=== PATIENT | male | born 1970 | race Caucasian/White ===

== ENCOUNTER → 2022-06-21 15:44 | Outpatient (BNVA) | payer MEDICAID, SELFPAY | PROVIDERS: PCP Nurse Practitioner Family; Visit Provider Nurse Practitioner Family | DX: R07.81 Pleurodynia (principal); W19.XXXA Unspecified fall, initial encounter; Z12.5 Encounter for screening for malignant neoplasm of prostate; F17.200 Nicotine dependence, unspecified, uncomplicated; I10 Essential (primary) hypertension | CPT/HCPCS: 71046; 80053; 80061; G0103 ==

== ENCOUNTER 2022-08-03 12:26 | Emergency (ER) | payer SELFPAY ==
--- NOTE | 2022-08-03 12:30 | W.ED.ABDPA2 ---
HPI - Abdominal Pain General: Chief Complaint: Alcohol Stated Complaint: ANXIETY/ ABDOMINAL PAIN Time Seen by Provider: 08/03/22 12:29 History of Present Illness: Mr. Raines is a 51-year-old gentleman with history of COPD, tobaccoism, hypertension, alcohol abuse presenting to the emergency department with various concerns. He reports being out of his medications for approximately 1 month. Over the past few weeks he has had increased episodes of presyncopal feelings which occur randomly. He has also had increased epigastric pain and a feeling of choking or coughing when eating or drinking. Intensity symptoms moderate. Course has worsened. No other specific changes in health, exacerbating, or alleviating factors identified. Onset (ago): week(s) Pain Consistency: constant Location: Epigastric Severity: moderate Quality: aching and burning Radiation: none Migration to: no migration Exacerbating factors: eating and movement Relieving factors: nothing Context: history of similar episodes and other Associated Symptoms: Reports dyspepsia, heartburn, nausea, poor appetite and other; Denies hematemesis and melena Review of Systems General: Reports: 10 or more systems reviewed and unremarkable except in HPI and below GI: Reports: nausea, heartburn and other; Denies: hematemesis or melena PFSH ED PFSH: Social History Smoking and tobacco status: current every day smoker cigarettes Packs smoked per day: 1.5 Years cigarettes smoked: 33 [ Other cigarette details: also smokes cigars] and cigars Years smoked cigars: 33 Alcohol intake: current Alcohol intake frequency: 3 or more drinks per day Alcohol type: other Desire information about alcohol rehabilitation?: No Counseling given: No Marital status: Single Current occupational status: unemployed Physical Exam Const: COMMON NORMALS: alert GENERAL APPEARANCE: cooperative and well developed HENMT: COMMON NORMALS: normocephalic and atraumatic HEAD & SCALP: normocephalic and atraumatic THROAT: posterior oropharynx normal OTHER: Poor dentition Eye: COMMON NORMALS: conjunctivae normal CONJUNCTIVA: Yes conjunctivae normal SCLERA: sclerae normal Neck/C-Spine: COMMON NORMALS: supple GENERAL: Yes trachea midline Resp: EFFORT & INSPECTION: Yes able to speak in complete sentences AUSCULTATION: diminished lung sounds Cardio: COMMON NORMALS: regular rate and regular rhythm RATE: regular rate RHYTHM: regular rhythm GI: COMMON NORMALS: Soft to palpation PALPATION: Yes Soft to palpation, Yes Tenderness to palpation present (GI), No Guarding due to palpation present (GI) and No Rigid due to palpation Extremity: GENERAL: Yes normal exam except as noted and No edema Neuro: COMMON NORMALS: moves all extremities SENSORIUM/ORIENTATION: Yes alert and No Orientation impaired Psych: COMMON NORMALS: mental status grossly normal and Normal thought process present THOUGHT PROCESS: Normal thought process present Course Vital Signs: Vital signs: Vital Signs Temperature 98.4 F 08/03/22 12:34 Pulse Rate 98 08/03/22 13:00 Respiratory Rate 14 08/03/22 13:00 Blood Pressure 152/91 08/03/22 13:00 Pulse Oximetry 98 08/03/22 13:00 Oxygen Delivery Me thod 08/03/22 13:00 MDM - Abdominal Pain Medical Decision Making 51-year-old gentleman presenting with generalized weakness and medical concerns. Patient has nonfocal neurologic exam and is nontoxic in appearance. EKG notable for sinus rhythm with nonspecific ST segment abnormalities, normal axis. Borderline QT interval. No STEMI Labs similar to prior, no significant hematologic abnormalities. Mild hyponatremia and hypokalemia on metabolic panel. AST is improved. Likely dehydration. Chest x-ray with no lobar consolidation or pneumothorax. CT imaging without acute intra-abdominal pathology. Discussed with patient incidental findings. Patient feels improved with IV fluids, potassium supplementation, GI cocktail. Most likely etiology of symptoms is multifactorial including gastritis and mild dehydration The results of ED evaluation were discussed with the patient including prescriptions and/or symptomatic cares (if applicable) including appropriate and responsible use, followup plan, and return precautions. The patient verbalized understanding and felt safe for discharge. Medical Records I reviewed the patient's medical records. Lab Data I reviewed the patient's lab results. 08/03/22 13:08 08/03/22 13:08 Labs/Radiology: Radiology Impressions Chest X-Ray 08/03/22 12:59 IMPRESSION: 1. Pulmonary hyperinflation. No acute process noted. Abdomen/Pelvis CT 08/03/22 13:39 IMPRESSION: 1. Hepatomegaly with diffuse fatty infiltration liver. 2. Gallbladder is normal in appearance. 3. Normal caliber abdominal aorta. 4. Normal renal parenchymal enhancement. No hydronephrosis. 5. A few sigmoid diverticuli. No diverticulitis. 6. Slightly prominent prostate measuring 4.0 CM. 7. Normal appendix. Laboratory Results WBC 8.2 10^3/uL (4.0-10.0) 08/03/22 13:08 RBC 4.56 10^6/uL (4.1-5.3) 08/03/22 13:08 Hgb 14.4 g/dL (11.7-16.6) 08/03/22 13:08 Hct 41.8 % (42.0-52.0) L 08/03/22 13:08 MCV 91.7 fl (80-94) 08/03/22 13:08 MCH 31.6 pg (28.0-34.0) 08/03/22 13:08 MCHC 34.4 g/dL (30.0-36.0) 08/03/22 13:08 RDW 12.9 % (12.1-15.1) 08/03/22 13:08 Plt Count 204 10^3/cmm (130-400) 08/03/22 13:08 MPV 10.1 fL (7.4-10.4) 08/03/22 13:08 Neut % (Auto) 83.9 % 08/03/22 13:08 Lymph % (Auto) 8.7 % 08/03/22 13:08 [place] % (Auto) 5.9 % 08/03/22 13:08 Eos % (Auto) 0.4 % 08/03/22 13:08 Baso % (Auto) 0.6 % 08/03/22 13:08 Neut # (Auto) 6.85 10^3/uL (1.8-7.7) 08/03/22 13:08 Lymph # (Auto) 0.7 10^3/uL (0.8-4.8) L 08/03/22 13:08 [place] # (Auto) 0.5 10^3/uL (0.2-0.9) 08/03/22 13:08 Eos # (Auto) 0.0 10^3/uL (0.0-0.8) 08/03/22 13:08 Baso # (Auto) 0.1 10^3/uL (0.0-0.1) 08/03/22 13:08 Nucleated RBC % (auto) 0 % 08/03/22 13:08 Nucleated RBCs # 0.0 /100WBC 08/03/22 13:08 Sodium 133 mmol/L (136-145) L 08/03/22 13:08 Potassium 3.1 mmol/L (3.5-5.1) L 08/03/22 13:08 Chloride 91 mmol/L (98-107) L 08/03/22 13:08 Carbon Dioxide 22 mmol/L (22-29) 08/03/22 13:08 Anion Gap 23.1 (5-19) H 08/03/22 13:08 BUN 14 mg/dL (6-20) 08/03/22 13:08 Creatinine 0.7 mg/dL (0.7-1.2) 08/03/22 13:08 GFR Calculation 118.4 mL/min (90-130) 08/03/22 13:08 Glucose 103 mg/dL (65-115) 08/03/22 13:08 Calculated Osmolality 277 mOsm/kg (285-295) L 08/03/22 13:08 Calcium 9.3 mg/dL (8.5-10.5) 08/03/22 13:08 Total Bilirubin 1.1 mg/dL (0.15-1.2) 08/03/22 13:08 AST 48 U/L (0-40) H 08/03/22 13:08 ALT 28 U/L (0-41) 08/03/22 13:08 Alkaline Phosphatase 111 U/L (40-130) 08/03/22 13:08 Troponin T Baseline 13 ng/L (0-15) 08/03/22 13:08 Troponin T 120 Minute 12.90 ng/L (0-15) 08/03/22 14:30 Delta Troponin T -0.1 ABS# (0-10) L 08/03/22 14:30 Total Protein 7.4 g/dL (6.6-8.7) 08/03/22 13:08 Albumin 4.2 g/dL (3.5-5.2) 08/03/22 13:08 Globulin 3.2 g/dL (1.3-4.6) 08/03/22 13:08 Lipase 18 U/L (13-60) 08/03/22 13:08 Urine Color Dark yellow (Yellow) 08/03/22 14:17 Urine Appearance Clear (CLEAR) 08/03/22 14:17 Urine pH 8 (5-7) H 08/03/22 14:17 Ur Specific [place] 1.005 (1.005-1.030) 08/03/22 14:17 Urine Protein Neg (Negative) 08/03/22 14:17 Urine Glucose (UA) Norm (Normal) 08/03/22 14:17 Urine Ketones 1+ (Negative) H 08/03/22 14:17 Urine Blood Neg (Negative) 08/03/22 14:17 Urine Nitrate Negative (Negative) 08/03/22 14:17 Urine Bilirubin Neg (Negative) 08/03/22 14:17 Prot Sulfosalicylic Acd Negative (Negative) 08/03/22 14:17 Urine Urobilinogen Norm mg/dL (Negative) 08/03/22 14:17 Ur Leukocyte Esterase Trace (Negative) H 08/03/22 14:17 Urine RBC None /hpf (0-2) 08/03/22 14:17 Urine WBC 0-4 /hpf (0-5) H 08/03/22 14:17 Ur Squamous Epith Cells None /hpf (0-5) 08/03/22 14:17 Amorphous Sediment Not Reportable 08/03/22 14:17 Urine Bacteria Trace /hpf (NONE) 08/03/22 14:17 Urine Mucus Trace /hpf 08/03/22 14:17 Discharge Plan Discharge Patient Disposition: Home Clinical Impression: Anxiety, Abdominal pain, HTN (hypertension), Alcohol abuse, Dehydration, Hypokalemia Condition: Stable Prescriptions: No Action buspirone 10 mg tablet 10 mg PO TID 30 Days Qty: 90 3RF ibuprofen 600 mg tablet 600 mg PO TID PRN (Reason: pain) 10 Days Qty: 30 0RF lisinopril 10 mg tablet 10 mg PO DAILY 30 Days Qty: 30 3RF diphenhydramine HCl [Benadryl] 25 mg capsule 25 mg PO TID PRN (Reason: allergy symptoms) 90 Days Qty: 180 1RF budesonide-formoterol [Symbicort] 160-4.5 mcg/actuation HFA aerosol inhaler 2 puff inhalation Q12H Qty: 10.2 3RF albuterol sulfate [Ventolin HFA] 90 mcg/actuation HFA aerosol inhaler 2 puff inhalation 6XD PRN (Reason: shortness of breath or wheezing) Qty: 8.5 3RF hydroxyzine HCl 25 mg tablet 25 mg PO QID 90 Days Qty: 360 0RF Discharge Orders: Discharge ED (Routine); Ordered 08/03/22 Ordered By: Allen Foote Referrals: Dulce Roe, [facility] [Primary Care Provider] - Discharge Diet: Advance as tolerated and Clear Liquid Discharge Activity: Increase activity as tolerated Patient Instructions: Gastritis (ED), Diet for Stomach Ulcers and Gastritis (ED), Abdominal Pain (ED) Activity Restrictions/Additional Instructions: Thank you for visiting the emergency department. You were seen and evaluated for abdominal pain and associated symptoms. The exact cause of your symptoms is unclear though likely related to gastritis secondary to alcohol use in the context of not taking her medications. Given that your medications were filled I recommend restarting your medications as prescribed and following up with your primary care provider. Return to the emergency department for uncontrolled symptoms or anything else that you are concerned about and feel needs emergency department evaluation. Coding Level of Care Code ED Labor Gang Supervisor for Andrae Watters
[2022-08-03 12:34] VITALS: BP 172/116; PULSE 91; RESP 20; TEMP 36.9; O2SAT 99; BMI 27.4
--- NOTE | 2022-08-03 12:59 | ECG_ITS ---
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 Measurements Intervals [place] Rate: 73 P: 77 [place]: 144 QRS: 39 QRSD: 105 T: 75 QT: 438 QTc: 485 Interpretive Statements SINUS RHYTHM WITH SINUS ARRHYTHMIA POSSIBLE LEFT VENTRICULAR HYPERTROPHY [VOLTAGE CRITERIA PLUS LAE OR QRS WIDENING] NONSPECIFIC T-WAVE ABNORMALITY PROLONGED QT INTERVAL No previous ECG available for comparison Electronically Signed On 08-03-2022 16:50:07 PROFESSOR OF EXERCISE SCIENCE by Lenny Kelly M.D. [id number]
--- NOTE | 2022-08-03 12:59 | XR_ITS ---
WS: [id number] Exam: XR chest 1V portable [id number] Date/Time of Exam: 08/03/2022 1:01 PM Reason For Exam: cp Comparison 06/21/2022. The lungs are hyperinflated and clear. Normal cardiomediastinal silhouette. Regional bony elements ar e intact. Chronic blunting of the left costophrenic angle apparently representing pleural thickening. XR/XR chest 1V portable [id number] IMPRESSION: 1. Pulmonary hyperinflation. No acute process noted.
[2022-08-03 13:00] VITALS: BP 152/91; PULSE 98; RESP 14; O2SAT 98
[2022-08-03 13:20] LABS: Basophils # 0.1 10^3/uL (0.0-0.1); Basophils % 0.6 %; Eosinophils % 0.4 %; Hematocrit 41.8 % (42.0-52.0); Hemoglobin 14.4 g/dL (11.7-16.6); Lymphocytes # 0.7 10^3/uL (0.8-4.8); Lymphocytes % 8.7 %; Mean Corpuscular HGB Conc 34.4 g/dL (30.0-36.0); Mean Corpuscular Hemoglobin 31.6 pg (28.0-34.0); Mean Corpuscular Volume 91.7 fl (80-94); Mean Platelet Volume 10.1 fL (7.4-10.4); Monocytes # 0.5 10^3/uL (0.2-0.9); Monocytes % 5.9 %; Neutrophils # 6.85 10^3/uL (1.8-7.7); Neutrophils % 83.9 %; Nucleated Red Blood Cells % 0 %; Platelet Count 204 10^3/cmm (130-400); Red Blood Count 4.56 10^6/uL (4.1-5.3); Red Cell Distribution Width 12.9 % (12.1-15.1); White Blood Count 8.2 10^3/uL (4.0-10.0)
[2022-08-03 13:38] LABS: Troponin(5th) Baseline 13 ng/L (0-15)
[2022-08-03 13:39] LABS: Alanine Aminotransferase 28 U/L (0-41); Albumin Level 4.2 g/dL (3.5-5.2); Alkaline Phosphatase 111 U/L (40-130); Anion Gap 23.1 (5-19); Aspartate Amino Transferase 48 U/L (0-40); Blood Urea Nitrogen 14 mg/dL (6-20); Calcium 9.3 mg/dL (8.5-10.5); Carbon Dioxide 22 mmol/L (22-29); Chloride 91 mmol/L (98-107); Creatinine Clr Calc Pharmacy 149.5979; Globulin 3.2 g/dL (1.3-4.6); Glomerular Filtration Rate 118.4 mL/min (90-130); Glucose 103 mg/dL (65-115); Lipase 18 U/L (13-60); Osmolality Calculated 277 mOsm/kg (285-295); Potassium 3.1 mmol/L (3.5-5.1); Sodium 133 mmol/L (136-145); Total Bilirubin 1.1 mg/dL (0.15-1.2); Total Protein 7.4 g/dL (6.6-8.7)
--- NOTE | 2022-08-03 13:39 | CT_ITS ---
WS: [id number] CT ABDOMEN PELVIS TECHNIQUE: Contrast-enhanced CT of the abdomen and pelvis with coronal and sagittal reformatted image s. CLINICAL INFORMATION: epigastric pain COMPARISON: None. DLP: 654.[address] scans at [facility] use at least one of these dose optimization techniques: automated e xposure control; mA and/or kV adjustment per patient size (includes targeted exams where dose is matc hed to clinical indication); or iterative reconstruction. FINDINGS: Mild hepatomegaly. Diffuse fatty infiltration liver. Normal portal vein and splenic vein. Normal sple en. Normal GE junction. Normal gallbladder. Lung bases are well aerated. Portal vein and splenic vein are patent. Normal spleen. Normal caliber abdominal aorta. Celiac and SMA are patent. Adrenal glands are normal. Normal renal parenchymal enhancement. No hydronephrosis. Normal pancreatic parenchymal enhancement. Prominent prostate measuring 4.0 CM. Sigmoid diverticulosi s. No evidence of acute diverticulitis. No evidence of high-grade small or large bowel obstruction. CT/CT abdomen pelvis w con* [id number] IMPRESSION: 1. Hepatomegaly with diffuse fatty infiltration liver. 2. Gallbladder is normal in appearance. 3. Normal caliber abdominal aorta. 4. Normal renal parenchymal enhancement. No hydronephrosis. 5. A few sigmoid diverticuli. No diverticulitis. 6. Slightly prominent prostate measuring 4.0 CM. 7. Normal appendix.
[2022-08-03] MEDS: iohexol 350 mg/mL 500 mL Btl (per mL) IV (13:57)
[2022-08-03] MEDS: lidocaine 2% viscous 15 ML, aluminum-mag hydrox-simethicon 30 ML, sucralfate oral liq 1 GM PO (14:50)
[2022-08-03] MEDS: nicotine 21 mg Patch 1 PATCH TRANSDERMA (14:50)
[2022-08-03] MEDS: potassium chloride ER 20 mEq Tablet 40 MEQ PO (14:51)
[2022-08-03] MEDS: sodium chloride 0.9% 1,000 ML 999 ML IV (14:51)
[2022-08-03 14:56] LABS: Add Urine Microscopic? YES; Bilirubin Urine Neg (Negative); Blood Urine Neg (Negative); Glucose Urine UA Norm (Normal); Ketones Urine 1+ (Negative); Leukocyte Esterase Urine Trace (Negative); Nitrate Urine Negative (Negative); Protein Urine Neg (Negative); Specific Gravity, Urine 1.005 (1.005-1.030); Sulfosalicylic Acid Urine Negative (Negative); Urine Appearance Clear (CLEAR); Urine Color Dark Yellow (Yellow); Urobilinogen Urine Norm (Negative); pH Urine 8 (5-7)
[2022-08-03 14:57] LABS: Bacteria Urine TRACE /hpf; Mucus Urine TRACE /hpf; WBC Urine 0-4 /hpf (0-5)
--- NOTE | 2022-08-03 14:59 | ECG_ITS ---
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 Measurements Intervals [place] Rate: 66 P: -17 ND: 101 QRS: 34 QRSD: 110 T: 53 QT: 428 QTc: 449 Interpretive Statements SINUS RHYTHM WITH SHORT ND INTERVAL POSSIBLE LEFT VENTRICULAR HYPERTROPHY [VOLTAGE CRITERIA PLUS LAE OR QRS WIDENING] NONSPECIFIC T-WAVE ABNORMALITY Compared to ECG 08/03/2022 13:14:34 Short ND interval now present Sinus arrhythmia no longer present Prolonged QT interval no longer present T-wave abnormality still present Electronically Signed On 08-03-2022 16:53:57 SUPERVISOR CUSTOMER RECORDS DIVISION by Lenny Kelly M.D. [id number]
[2022-08-03 15:02] LABS: Troponin 5 2HR Delta -0.1 ABS# (0-10)
== END 2022-08-03 16:11 | disposition home or self-care (01) ==
PROVIDERS: Emergency Provider Emergency Medicine; PCP Nurse Practitioner Family
DX: F41.9 Anxiety disorder, unspecified (principal); I10 Essential (primary) hypertension; F10.10 Alcohol abuse, uncomplicated; E86.0 Dehydration; E87.6 Hypokalemia; R10.13 Epigastric pain; K76.0 Fatty (change of) liver, not elsewhere classified; F17.210 Nicotine dependence, cigarettes, uncomplicated
CPT/HCPCS: 36415; 71045; 74177; 80053; 81001; 83690; 84484; 85025; 93005; 99285; J7030; Q9967

== ENCOUNTER 2023-07-22 17:02 | Inpatient (IN) | payer BC, SELFPAY ==
[2023-07-22] VITALS (22 sets, daily range): BP systolic 99–162; BP diastolic 58–92; PULSE 100–144; RESP 13–21; TEMP 36.9–37; O2SAT 90–99; BMI 24.3; BMI 25.0
--- NOTE | 2023-07-22 17:06 | XRR_ITS ---
PROCEDURE INFORMATION: Exam: XR Right Foot Exam date and time: 07/22/2023 5:30 PM Age: 52 years old Clinical indication: Pain; Foot; Right TECHNIQUE: Imaging protocol: Radiologic exam of the right foot. Views: 3 or more views. COMPARISON: No relevant prior studies available. FINDINGS: Bones/joints: No evidence of acute fracture or subluxation. Tarsometatarsal alignment is maintained. Achilles enthesophyte. If there is concern for Achilles tendon pathology, follow-up outpatient MRI may be helpful. There is pes cavus. Soft tissues: Questionable soft tissue ulceration of the great toe. No evidence of soft tissue air. XR/XR foot RT min 3V* [id number] IMPRESSION: 1. No evidence of acute osseous erosion, fracture or subluxation. 2. Questionable soft tissue ulceration of the great toe.
--- NOTE | 2023-07-22 17:06 | XRR_ITS ---
PROCEDURE INFORMATION: Exam: XR Left Foot Exam date and time: 07/22/2023 5:28 PM Age: 52 years old Clinical indication: Pain; Foot; Left TECHNIQUE: Imaging protocol: Radiologic exam of the left foot. Views: 3 or more views. COMPARISON: No relevant prior studies available. FINDINGS: Bones/joints: No evidence of acute fracture or subluxation. Tarsometatarsal alignment is maintained. There is pes cavus.Achilles enthesophyte. If there is concern for Achilles tendon pathology, follow-up outpatient MRI may be helpful. Soft tissues: Questionable soft tissue ulceration of the great toe. No evidence of soft tissue air. XR/XR foot LT min 3V* [id number] IMPRESSION: 1. No evidence of acute osseous erosion, fracture or subluxation. 2. Questionable soft tissue ulceration of the great toe.
--- NOTE | 2023-07-22 17:32 | W.ED.EXTPRO ---
HPI - Extremity Problem General: Chief complaint: Extremity Injury, Lower Stated complaint: feet pain Time Seen by Provider: 07/22/23 17:06 Source: patient Mode of arrival: ambulatory History of Present Illness: 52-year-old male with a history of alcoholism presents to the emergency room after having fallen off of his porch and being outside overnight a few days ago. He is complaining of pain bilaterally to his feet. He denies any other injury. Essentially he passed out intoxicated and stayed outside all night. He denies fever sweats or chills. Denies nausea or vomiting no hematemesis or coffee-ground emesis. MD Complaint: extremity pain Onset (ago): day(s) Pain Consistency: constant Location: left, right and toe (Multiple toes) Quality: aching Relieving factors: nothing Exacerbating factors: nothing Associated symptoms: Deny chest pain, fever(s) or rash Review of Systems Const: Denies: fever(s) or chills Card: Denies: chest pain Resp: Denies: dyspnea GI: Denies: abdominal pain : Denies: dysuria, urinary frequency or urinary urgency Musc: Denies: neck pain or back pain Skin/Breast: Denies: rash PFSH ED PFSH: Medical History (Updated 07/30/23 @ 06:16 by Ellis Melednez DO) History of alcoholism Excessive salivation Surgical History (Updated 07/26/23 @ 00:00 by MONSERRAT Cooley) No pertinent past surgical history Family History (Updated 07/22/23 @ 18:18 by Eulogio Price MD) Mother Diabetes Cancer Social History Smoking and tobacco/nicotine status: current every day tobacco/nicotine user cigarettes Packs smoked per day: 1.5 Years cigarettes smoked: 33 [ Other cigarette details: also smokes cigars] and cigars Years smoked cigars: 33 Alcohol intake: current Alcohol intake frequency: 3 or more drinks per day Alcohol type: other Substance/Drug Use: never Marital status: Single Current occupational status: unemployed Physical Exam Const: GENERAL APPEARANCE: cooperative ORIENTATION/CONSCIOUSNESS: Yes awake, Yes oriented to person, Yes oriented to place and Yes oriented to time HENMT: COMMON NORMALS: normocephalic, atraumatic and hearing grossly normal bilaterally HEAD & SCALP: normocephalic and atraumatic Resp: COMMON NORMALS: normal respiratory effort, No retractions, No use of accessory muscles and clear to auscultation bilaterally AUSCULTATION: clear to auscultation bilaterally Cardio: COMMON NORMALS: regular rate, regular rhythm and No murmurs present (Cardio) RATE: regular rate RHYTHM: regular rhythm GI: COMMON NORMALS: Soft to palpation and No hepatosplenomegaly present AUSCULTATION: Yes normoactive bowel sounds PALPATION: Yes Soft to palpation, No Tenderness to palpation present (GI), No Guarding due to palpation present (GI) and Yes No hepatosplenomegaly present Extremity: OTHER: Varying degrees of frostbite to his lower extremities to the toes. Several of the areas are full-thickness with a large amount of exposed subcutaneous tissue these are primarily on the sole of the foot at the first MP joint and the lateral portion of the great toes. Other toes at the tips second third and fourth toes appeared gangrenous with nonviable overlying tissue. Small amount of foul-smelling serous drainage Neuro: SENSORIUM/ORIENTATION: Yes oriented to person, Yes oriented to place and Yes oriented to time Course Vital Signs: Vital signs: Vital Signs Temperature 99.1 F 07/25/23 07:25 Pulse Rate 71 07/25/23 12:36 Respiratory Rate 16 07/25/23 12:36 Blood Pressure 144/74 07/25/23 07:25 Pulse Oximetry 97 07/25/23 12:36 Oxygen Delivery Me thod Room Air 07/25/23 07:47 MDM - Extremity (Nontraumatic) Medical Decision Making Full-thickness frostbite injury which is a couple of days old these will need debridement there is some sign that there is mild infection already. He will be admitted for IV antibiotics podiatry consult for tissue debridement and initiation of wound care. Admit to hospitalist consult podiatry. Started on CIWA protocol patient likely to have withdrawal issues Medical Records I reviewed the patient's medical records. Lab Data I reviewed the patient's lab results. 07/25/23 05:49 07/25/23 05:49 Radiology Impressions Foot X-Ray 07/22/23 17:06 IMPRESSION: 1. No evidence of acute osseous erosion, fracture or subluxation. 2. Questionable soft tissue ulceration of the great toe. Duplex Scan Lower Extremity Artery 07/22/23 17:50 IMPRESSION: 1. No evidence of hemodynamically significant stenosis or occlusion in either lower extremity. Chest/Abdomen/Pelvis CT 07/22/23 18:23 IMPRESSION: 1. No focal consolidation, pleural effusion or pneumothorax. 2. No traumatic injury to the thoracic aorta. 3. No fracture identified. IMPRESSION: 1. No solid organ injury in the abdomen or pelvis. 2. No secondary signs of bowel injury. No free air or significant free fluid in the abdomen or pelvis. 3. No fractures. Head CT 07/22/23 18:23 IMPRESSION: 1. No acute intracranial abnormality. Cervical Spine CT 07/22/23 18:29 IMPRESSION: 1. No evidence of fracture or subluxation of the cervical spine. Laboratory Results WBC 5.49 10^3/uL (3.29-11.43) 07/22/23 17:28 RBC 4.35 10^6/uL (3.85-5.65) 07/22/23 17:28 Hgb 13.60 g/dL (11.27-16.99) 07/22/23 17:28 Hct 40.4 % (37-53) 07/22/23 17:28 MCV 92.9 fl (82-101) 07/22/23 17:28 MCH 31.3 pg (27-33) 07/22/23 17:28 MCHC 33.7 g/dL (30-55) 07/22/23 17:28 RDW 14.8 % (12.1-15.1) 07/22/23 17:28 Plt Count 507 10^3/cmm (157-399) H 07/22/23 17:28 MPV 9.3 fL (7.4-10.4) 07/22/23 17:28 Neut % (Auto) 66.8 % 07/22/23 17:28 Lymph % (Auto) 27.1 % 07/22/23 17:28 [place] % (Auto) 4.6 % 07/22/23 17:28 Eos % (Auto) 0.2 % 07/22/23 17:28 Baso % (Auto) 0.9 % 07/22/23 17:28 Neut # (Auto) 3.67 10^3/uL (1.8-7.7) 07/22/23 17: Lymph # (Auto) 1.5 10^3/uL (0.8-4.8) 07/22/23 17: [place] # (Auto) 0.3 10^3/uL (0.2-0.9) 07/22/23 17: Eos # (Auto) 0.0 10^3/uL (0.0-0.8) 07/22/23: Baso # (Auto) 0.1 10^3/uL (0.0-0.1) 07/22/23: Nucleated RBC % (auto) 0 % 07/22/23: Nucleated RBCs # 0.0 /100WBC 07/22/23: ESR 90 mm/hr (0-10) H 07/22/23: PT 13.50 SECONDS (12.1-14.9) 07/22/23: INR 1.00 (0.8-1.2) 07/22/23 17: Sodium 136 mmol/L (136-145) 07/22/23: Potassium 4.8 mmol/L (3.5-5.1) 07/22/23: Chloride 92 mmol/L (98-107) L 07/22/23: Carbon Dioxide 18 mmol/L (22-29) L 07/22/23: Anion Gap 30.8 (5-19) H 07/22/23: BUN 14 mg/dL (6-20) 07/22/23: Creatinine 0.7 mg/dL (0.7-1.2) 07/22/23: GFR Calculation 118.0 mL/min (90-130) 07/22/23: Glucose 64 mg/dL (65-115) L 07/22/23: Estimat Average Glucose 97 07/22/23 17: Hemoglobin A1c 5.0 % (4.0-6.0) 07/22/23: Calculated Osmolality 281 mOsm/kg (285-295) L 07/22/23: Lactic Acid 3.9 mmol/L (0.5-2.2) H 07/22/23 17:28 Calcium 9.0 mg/dL (8.5-10.5) 07/22/23 17:28 Total Bilirubin 0.5 mg/dL (0.15-1.2) 07/22/23 17:28 AST 112 U/L (0-40) H 07/22/23 17:28 ALT 54 U/L (0-41) H 07/22/23 17:28 Alkaline Phosphatase 204 U/L (40-130) H 07/22/23 17:28 Creatine Kinase 59 U/L (39-308) 07/22/23 17:28 C-Reactive Protein 20.7 mg/L (0.0-4.9) H 07/22/23 17:28 NT-Pro-B Natriuret Pep 40 pg/mL (0-125) 07/22/23 17: Total Protein 8.5 g/dL (6.6-8.7) 07/22/23 17: Albumin 4.3 g/dL (3.5-5.2) 07/22/23 17: Globulin 4.2 g/dL (1.3-4.6) 07/22/23 17:28 Triglycerides 116 mg/dL (0-150) 07/22/23 17:28 Cholesterol 260 mg/dL (0-200) H 07/22/23 17:28 LDL Cholesterol, Calc 155 mg/dL (50-129) H 07/22/23 17: HDL Cholesterol 82 mg/dL (60-100) 07/22/23 17: LDL/HDL Ratio 1.89 RATIO (0.00-3.22) 07/22/23 17: Cholesterol/HDL Ratio 3.17 mg/dL (1.0-5.00) 07/22/23 17:28 Procalcitonin 0.06 ng/mL (0-0.5) 07/22/23 17: TSH 2.41 uIU/mL (0.27-4.20) 07/22/23 17:28 Urine Color Yellow (Yellow) 07/22/23 17:30 Urine Appearance Clear (CLEAR) 07/22/23 17:30 Urine pH 5 (5-7) 07/22/23 17:30 Ur Specific [place] 1.020 (1.005-1.030) 07/22/23 17:30 Urine Protein Neg (Negative) 07/22/23 17:30 Urine Glucose (UA) Norm (Normal) 07/22/23 17:30 Urine Ketones 2+ (Negative) H 07/22/23 17:30 Urine Blood Neg (Negative) 07/22/23 17:30 Urine Nitrate Negative (Negative) 07/22/23 17:30 Urine Bilirubin Neg (Negative) 07/22/23 17:30 Urine Urobilinogen Norm mg/dL (Negative) 07/22/23 17:30 Ur Leukocyte Esterase Negative (Negative) 07/22/23 17:30 Salicylates < 0.3 mg/dL (3-10) L 07/22/23 17:28 Urine Opiates Screen Negative ng/mL (Negative) 07/22/23 17:30 Acetaminophen < 5.0 ug/mL (10-30) L 07/22/23 17:28 Ur Barbiturates Screen Negative ng/mL (Negative) 07/22/23 17:30 Ur Phencyclidine Scrn Negative ng/mL (Negative) 07/22/23 17:30 Ur Amphetamines Screen Negative ng/mL (Negative) 07/22/23 17:30 U Benzodiazepines Scrn Negative ng/mL (Negative) 07/22/23 17:30 Urine Cocaine Screen Negative ng/mL (Negative) 07/22/23 17:30 U Marijuana (THC) Screen Negative ng/mL (Negative) 07/22/23 17:30 Volat Analys Perform On Whole blood 07/22/23 17:28 Ethyl Alcohol 301 mg/dL (0-10) H* 07/22/23 17:28 Methyl Alcohol Level None detected mg/dL (NONE DETECTED) 07/22/23 17:28 All radiology interpretation(s) finalized by discharge Discharge Plan Discharge Patient Disposition: Admitted As Inpatient Admit Provider: Eulogio Price Clinical Impression: Frostbite of toe of left foot, Current every day smoker, Alcoholism, Cellulitis Condition: Stable Discharge Diet: Cardiac Discharge Activity: Resume usual activity Coding Level of Care Code ED Director Of Tax Services for Andrae Watters
--- NOTE | 2023-07-22 17:35 | ECG_ITS ---
[facility] Test Date: 2023-07-22 Pat Name: Gerald Raines Department: Room: Gender: Male Application Development Specialist: : [id number] Requested By: Ellis Rodríguez Order Number: [id number] Sandy MD: Amadeo Root M.D. Measurements Intervals [place] Rate: 105 P: 79 AR: 148 QRS: 62 QRSD: 98 T: 78 QT: 362 QTc: 479 Interpretive Statements SINUS TACHYCARDIA Compared to ECG 08/03/2022 15:09:03 Sinus rhythm no longer present Short AR interval no longer present T-wave abnormality no longer present Electronically Signed On 07-23-2023 16:31:37 CARE ASSOCIATE by Amadeo Root M.D. [id number]
[2023-07-22 17:45] LABS: Basophils # 0.1 10^3/uL (0.0-0.1); Basophils % 0.9 %; Eosinophils % 0.2 %; Hematocrit 40.4 % (37-53); Lymphocytes # 1.5 10^3/uL (0.8-4.8); Lymphocytes % 27.1 %; Mean Corpuscular HGB Conc 33.7 g/dL (30-55); Mean Corpuscular Hemoglobin 31.3 pg (27-33); Mean Corpuscular Volume 92.9 fl (82-101); Mean Platelet Volume 9.3 fL (7.4-10.4); Monocytes # 0.3 10^3/uL (0.2-0.9); Monocytes % 4.6 %; Neutrophils # 3.67 10^3/uL (1.8-7.7); Neutrophils % 66.8 %; Nucleated Red Blood Cells % 0 %; Platelet Count 507 10^3/cmm (157-399); Red Blood Count 4.35 10^6/uL (3.85-5.65); Red Cell Distribution Width 14.8 % (12.1-15.1); White Blood Count 5.49 10^3/uL (3.29-11.43)
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
[2023-07-22 18:00] LABS: Lactic Sepsis W/Reflex 3.9 mmol/L (0.5-2.2)
[2023-07-22] MEDS: LORazepam 2 mg Tablet PO (18:00)
[2023-07-22 18:03] LABS: Alanine Aminotransferase 54 U/L (0-41); Albumin Level 4.3 g/dL (3.5-5.2); Alkaline Phosphatase 204 U/L (40-130); Anion Gap 30.8 (5-19); Aspartate Amino Transferase 112 U/L (0-40); Blood Urea Nitrogen 14 mg/dL (6-20); Carbon Dioxide 18 mmol/L (22-29); Chloride 92 mmol/L (98-107); Creatine Phosphokinase 59 U/L (39-308); Globulin 4.2 g/dL (1.3-4.6); Glucose 64 mg/dL (65-115); Osmolality Calculated 281 mOsm/kg (285-295); Potassium 4.8 mmol/L (3.5-5.1); Sodium 136 mmol/L (136-145); Total Bilirubin 0.5 mg/dL (0.15-1.2); Total Protein 8.5 g/dL (6.6-8.7)
[2023-07-22 18:14] LABS: Add Urine Microscopic? NO; Charge for UA Resulting for Rev
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
[2023-07-22 18:17] LABS: Bilirubin Urine Neg (Negative); Blood Urine Neg (Negative); Glucose Urine UA Norm (Normal); Ketones Urine 2+ (Negative); Leukocyte Esterase Urine Negative (Negative); Nitrate Urine Negative (Negative); Protein Urine Neg (Negative); Urine Appearance Clear (CLEAR); Urine Color Yellow (Yellow); Urobilinogen Urine Norm (Negative); pH Urine 5 (5-7)
--- NOTE | 2023-07-22 18:23 | P.CONIM_ITS ---
Providers/Reason For Consult 2 Consulting Physician/Specialty*: Yared Eubanks D.P.M. Reason for Consult*: Frostbite Requesting Physician: Bilateral foot wounds Primary Care Provider: Dulce Roe NP History of Present Illness History of Present Illness Gerald Raines is a 52 year old male presenting to the emergency department per recommendation of primary care for suspected frostbite left and right great toe, patient being admitted to the hospital service for alcohol withdrawal. Podiatry consulted for wound evaluation. Patient states that he accidentally locked himself out of his camper trailer overnight, states he was wearing socks and tennis shoes, states that the wounds formed after spending the night outside exposed to cold. Review of Systems 2 General: Reports: 10 or more systems reviewed and unremarkable except in HPI and below Const: Denies: fever(s) or chills Eyes: Denies: change in vision Card: Denies: chest pain or palpitations Resp: Denies: dyspnea or productive cough GI: Denies: abdominal pain, nausea or vomiting : Denies: flank pain Musc: Reports: extremity swelling, joint stiffness and deformity Skin/Breast: Reports: erythema, sores, changes in skin color, dry skin, nail changes and change in hair Neuro: Reports: numbness in extremities, sensory changes and difficulty walking Psych: Denies: suicidal ideation Endo: Denies: change in body appearance Jovanni/Lymph: Denies: tender lymph nodes Medications/Allergies Home Medications Medication Instructions Recorded Confirmed Last Taken Type albuterol sulfate 90 mcg/actuation 2 puff inhalation 6XD PRN 08/03/22 07/22/23 Unknown Rx aerosol inhaler (Ventolin HFA) shortness of breath or wheezing #8.5 grams budesonide-formoterol HFA 160 2 puff inhalation Q12H #10.2 grams 08/03/22 07/22/23 Unknown Rx mcg-4.5 mcg/actuation aerosol inhaler (Symbicort) buspirone 10 mg tablet 10 mg PO TID 30 days #90 tabs 04/11/23 07/22/23 Unknown Rx hydrochlorothiazide 25 mg tablet 25 mg PO DAILY 30 days #30 tabs 04/11/23 07/22/23 Unknown Rx lisinopril 20 mg tablet 20 mg PO DAILY 30 days #30 tabs 04/11/23 07/22/23 Unknown Rx pantoprazole 40 mg tablet,delayed 40 mg PO BID 30 days #60 tabs 04/11/23 07/22/23 Unknown Rx release clindamycin HCl 300 mg capsule 300 mg PO TID 10 days #30 caps 07/22/23 07/22/23 Unknown Rx Allergies Allergy/AdvReac Type Severity Reaction Status Date / Time No Known Allergies Allergy Verified 07/22/23 17:03 PFSH Acute 2 PFSH: Medical History (Updated 07/22/23 @ 18:54 by Yared Eubanks DPM) History of alcoholism Excessive salivation Surgical History (Updated 07/22/23 @ 18:19 by Eulogio Price MD) No pertinent past surgical history Family History (Updated 07/22/23 @ 18:18 by Eulogio Price MD) Mother Diabetes Cancer Social History Smoking and tobacco/nicotine status: current every day tobacco/nicotine user cigarettes Packs smoked per day: 1.5 Years cigarettes smoked: 33 [ Other cigarette details: also smokes cigars] and cigars Years smoked cigars: 33 Alcohol intake: current Alcohol intake frequency: 3 or more drinks per day Alcohol type: other Substance/Drug Use: never Marital status: Single Current occupational status: unemployed Vitals/I&O/Wt Last Vital Signs Temp 98.4 F 07/22/23 17:06 Pulse 118 H 07/22/23 17:30 Resp 16 07/22/23 17:06 BP 120/75 07/22/23 17:30 Pulse Ox 97 07/22/23 17:30 O2 Del Method Room Air 07/22/23 17:30 Weight last 48 hrs Weight 184 lb Physical Exam 2 Narrative: GENERAL: Patient is alert and oriented ?3 and in no acute distress. The following is a focused bilateral lower extremity exam. VASCULAR: Dorsalis pedis palpable +2 bilaterally. Posterior tibial arteries +2. Capillary refill time less than 3 seconds to the distal left second toe bilaterally. Calf is supple and nontender proximally and distally. Decreased pedal hair growth bilaterally. NEUROLOGICAL: Protective sensation intact to light touch. DERMATOLOGICAL: Mustafa grade 3 wound at the plantar medial aspect of the left hallux with erythema localized to the left great toe, wound measures 1.9 cm x 1.4 cm x 0.3 cm exposed to myofascial layer, does not probe to bone, tunnel or undermine. Grade 1 wound limited to breakdown of skin left great toe with erythema localized to the left great toe without proximal lymphangitic streaking. MUSCULOSKELETAL: Tenderness to palpation at great toe bilaterally, no crepitus with soft tissue palpation. Able to wiggle toes on command. Data 07/22/23 17:28 07/22/23 17:28 Micro: Microbiology 07/22/23 17:42 Blood Culture - Preliminary Blood SPECIMEN COLLECTED 07/22/23 17:40 Blood Culture - Preliminary Blood SPECIMEN COLLECTED A&P Assessment and plan (1) Frostbite of toe: (2) Non-pressure chronic ulcer of other part of left foot with necrosis of muscle: Plan 52-year-old male presents with frostbite, most severe is his left great toe, his Mustafa grade 3 wound exposed to myofascial layer with erythema about the left great toe. -Patient being admitted for alcohol withdrawal -Wounds were assessed in the emergency department, dressing consisting of Betadine wet-to-dry was performed -Patient has palpable pedal pulses, x-ray negative for osteomyelitis, foreign body or soft tissue edema. -Patient is afebrile, no leukocytosis, ESR 90 low suspicion for osteomyelitis, looking for other sources for elevated sed rate. -Patient to be n.p.o. at midnight in preparation for potential surgical debridement tomorrow at noon pending OR availability if not available tomorrow will plan on Saturday at noon Consult Attestations 2 Medical Necessity Statement: Frostbite bilateral foot Coding Level of Care Code Acute Code for [facility] Fwd Diagnoses Frostbite of toe T33.839A Non-pressure chronic ulcer of other part of left foot with necrosis of muscle L97.523
--- NOTE | 2023-07-22 18:23 | CTR_ITS ---
PROCEDURE INFORMATION: Exam: CT Chest Without Contrast; Diagnostic Exam date and time: 07/22/2023 7:54 PM Age: 52 years old Clinical indication: Injury or trauma; Fall; Generalized; Blunt trauma (contusions or hematomas); Patient HX: Patient states he fell off his porch several days ago. Patient acutely intoxicated. Limited history. ; Additional info: Fall off porch TECHNIQUE: Imaging protocol: Diagnostic computed tomography of the chest without contrast. Radiation optimization: All CT scans at this facility use at least one of these dose optimization techniques: automated exposure control; mA and/or kV adjustment per patient size (includes targeted exams where dose is matched to clinical indication); or iterative reconstruction. COMPARISON: CR XR chest 1V portable [id number] 08/03/2022 1:05 PM RADIATION DOSE METRICS: Total DLP (mGy-cm): 1009 FINDINGS: Lungs: Unremarkable. No consolidation. No masses. Pleural spaces: Unremarkable. No pneumothorax. No pleural effusion. Heart: Unremarkable. No cardiomegaly. No pericardial effusion. Coronary arteries: Coronary arterial atherosclerotic calcifications are present. Lymph nodes: Unremarkable. No enlarged lymph nodes. Vasculature: Unremarkable. No aortic aneurysm. Bones/joints: Unremarkable. No acute fracture. Soft tissues: Unremarkable. PROCEDURE INFORMATION: Exam: CT Abdomen And Pelvis Without Contrast Exam date and time: 07/22/2023 7:54 PM Age: 52 years old Clinical indication: Injury or trauma; Fall; Generalized; Blunt trauma (contusions or hematomas); Patient HX: Patient states he fell off his porch several days ago. Patient acutely intoxicated. Limited history. ; Additional info: Fall off porch TECHNIQUE: Imaging protocol: Computed tomography of the abdomen and pelvis without contrast. Radiation optimization: All CT scans at this facility use at least one of these dose optimization techniques: automated exposure control; mA and/or kV adjustment per patient size (includes targeted exams where dose is matched to clinical indication); or iterative reconstruction. COMPARISON: CT abdomen pelvis w con* [id number] 08/03/2022 1:55 PM RADIATION DOSE METRICS: Total DLP (mGy-cm): 1009 FINDINGS: Liver: Normal. No mass. Gallbladder and bile ducts: Normal. No calcified stones. No ductal dilation. Pancreas: Normal. No ductal dilation. Spleen: Normal. No splenomegaly. Adrenal glands: Normal. No mass. Kidneys and ureters: Normal. No hydronephrosis. Stomach and bowel: Unremarkable. No obstruction. No mucosal thickening. Appendix: No evidence of appendicitis. Intraperitoneal space: Unremarkable. No free air. No significant fluid collection. Vasculature: Unremarkable. No abdominal aortic aneurysm. Lymph nodes: Unremarkable. No enlarged lymph nodes. Urinary bladder: Unremarkable as visualized. Reproductive: Unremarkable as visualized. Bones/joints: Unremarkable. No acute fracture. Soft tissues: Unremarkable. CT/[place] [id number] IMPRESSION: 1. No focal consolidation, pleural effusion or pneumothorax. 2. No traumatic injury to the thoracic aorta. 3. No fracture identified. IMPRESSION: 1. No solid organ injury in the abdomen or pelvis. 2. No secondary signs of bowel injury. No free air or significant free fluid in the abdomen or pelvis. 3. No fractures.
--- NOTE | 2023-07-22 18:23 | CTR_ITS ---
PROCEDURE INFORMATION: Exam: CT Head Without Contrast Exam date and time: 07/22/2023 7:49 PM Age: 52 years old Clinical indication: Injury or trauma; Fall; Blunt trauma (contusions or hematomas); Patient HX: Patient states he fell off his porch several days ago. Patient acutely intoxicated. Limited history. TECHNIQUE: Imaging protocol: Computed tomography of the head without contrast. Radiation optimization: All CT scans at this facility use at least one of these dose optimization techniques: automated exposure control; mA and/or kV adjustment per patient size (includes targeted exams where dose is matched to clinical indication); or iterative reconstruction. COMPARISON: CT cervical spin wo con* [id number] 07/22/2023 7:49 PM RADIATION DOSE METRICS: Total DLP (mGy-cm): 336 FINDINGS: Brain: No evidence of intra-axial or extra-axial hemorrhage. No mass effect or midline shift. Ramires-white differentiation is maintained. Basilar cisterns are patent. Cerebral ventricles: No hydrocephalus. Paranasal sinuses: The visualized paranasal sinuses are well aerated. Mastoid air cells: The visualized mastoids and middle ears are clear. Bones/joints: The visualized calvarium and bony orbits are intact. Soft tissues: No gross soft tissue abnormality. CT/CT head wo con* [id number] IMPRESSION: 1. No acute intracranial abnormality.
[2023-07-22 18:25] LABS: Erythrocyte Sedimentation Rate 90 mm/hr (0-10)
--- NOTE | 2023-07-22 18:29 | CTR_ITS ---
PROCEDURE INFORMATION: Exam: CT Cervical Spine Without Contrast Exam date and time: 07/22/2023 7:49 PM Age: 52 years old Clinical indication: Injury or trauma; Fall; Blunt trauma; Patient HX: Patient states he fell off his porch several days ago. Patient acutely intoxicated. Limited history. TECHNIQUE: Imaging protocol: Computed tomography of the cervical spine without contrast. Radiation optimization: All CT scans at this facility use at least one of these dose optimization techniques: automated exposure control; mA and/or kV adjustment per patient size (includes targeted exams where dose is matched to clinical indication); or iterative reconstruction. COMPARISON: CT head wo con* [id number] 07/22/2023 7:49 PM RADIATION DOSE METRICS: Total DLP (mGy-cm): 236 FINDINGS: Bones/joints: No evidence of acute fracture or subluxation of the cervical spine. No evidence of aggressive osseous lesion. The craniocervical junction including the atlantoaxial and atlantooccipital articulations are intact. C2-C3: Mild uncovertebral hypertrophy without central or foraminal stenosis. C3-C4: Uncovertebral hypertrophy results in mild left-sided foraminal stenosis. No foraminal stenosis. C4-C5: Uncovertebral hypertrophy results in mild right-sided foraminal stenosis. Posterior disc protrusion results in mild central stenosis. C5-C6: Uncovertebral hypertrophy results in moderate-severe bilateral foraminal stenosis, left worse than right. Posterior disc protrusion results in moderate central stenosis. C6-C7: Mild uncovertebral hypertrophy without central or foraminal stenosis. C7-T1: Mild uncovertebral hypertrophy without central or foraminal stenosis. CT/CT cervical spin wo con* [id number] IMPRESSION: 1. No evidence of fracture or subluxation of the cervical spine.
[2023-07-22] MEDS: chlordiazePOXIDE 25 mg Capsule PO ×2 (18:35→23:52)
[2023-07-22] MEDS: sodium chloride 0.9% 1,000 ML 125 ML IV (18:37)
[2023-07-22] MEDS: piperacillin-tazobactam 3.375 GM in sodium chloride 0.9% (plus) 50 ML IV (18:42)
--- NOTE | 2023-07-22 18:49 | PC.PHAR ---
Callie Initial Dosing Patient Information Sex M M/F Last Name ALECIA AGE 52 years First Name CHRISTIANO Cool 73 inches : 1970 ABW 83.461 kg Location: ER IBW 79.9 kg If loading dose given: DW 83.461 kg Loading DOSE: 1250 mg SCr 0.7 mg/dl This Dose = 15.0 mg/kg CrCl 137.9 ml/min 1st dose Cmax: 18.8 mcg/ml Vd 62.41030 liters Time elapsed: 17.0 hrs Ke 0.119 hrs-1 Serum Conc. = 2.5 mcg/ml t1/2 6 hrs Hrs until 20 mcg/ml 0.5 hrs Hrs until 15 mcg/ml 2.9 hours Hrs until 10 mcg/ml 6.3 hours Dose Tau (Freq) Levels expected Standard 1500 12 Cmax 28.1 Targets 17.97 8.7 Cpeak 24.9 25 to 40 mg/kg hours Cmin 8.5 10 to 20
[2023-07-22] MEDS: enoxaparin 40 mg/0.4 mL Syringe SUBCUT (18:56)
[2023-07-22 18:57] LABS: NT Pro B Type Natriuretic Pept 40 pg/mL (0-125); Procalcitonin 0.06 ng/mL (0-0.5); Thyroid Stimulating Hormone 2.41 uIU/mL (0.27-4.20)
[2023-07-22] MEDS: pantoprazole 40 mg SDV IVP (19:00)
[2023-07-22] MEDS: vancomycin 1,500 MG/300 ML PIGGYBACK 200 MG IV (19:08)
[2023-07-22 19:09] LABS: Acetaminophen < 5.0 ug/mL (10-30); C Reactive Protein 20.7 mg/L (0.0-4.9); Chol HDL Ratio 3.17 mg/dL (1.0-5.00); Cholesterol 260 mg/dL (0-200); HDL Cholesterol 82 mg/dL (60-100); LDL Cholesterol Calculated 155 mg/dL (50-129); LDL HDL Ratio 1.89 RATIO (0.00-3.22); Salicylate < 0.3 mg/dL (3-10); Triglycerides 116 mg/dL (0-150)
[2023-07-22 19:11] LABS: Alcohol Level 301 mg/dL (0-10)
[2023-07-22 19:22] LABS: Reflex Lactate Order REFLEX LACTIC ORDERD
--- NOTE | 2023-07-22 19:33 | PC.NURSE ---
pt found in hallway with no underpants, pt removed left ac IV, proposal lead writer stopped pumps and attempting new access.
[2023-07-22] MEDS: morphine 4 mg/mL SDV 1 mL 2 MG IVP (20:32)
[2023-07-22] MEDS: LORazepam 2 mg/mL INJ 10 mL MDV IVP (20:36)
[2023-07-22] MEDS: folic acid 1 MG, multivitamin inj 10 ML, thiamine 100 MG in sodium chloride 0.9% 1,000 ML 252.8 MG IV (20:38)
[2023-07-22 20:59] LABS: Lactic Acid level (Lactate) 2.9 mmol/L (0.5-2.2)
[2023-07-22 21:22] LABS: Amphetamines Screen Urine Negative (Negative); Barbiturates Screen Urine Negative (Negative); Benzodiazepines Screen Urine Negative (Negative); Cocaine Screen Urine Negative (Negative); Opiate Screen Urine Negative (Negative); PCP Screen Urine Negative (Negative); THC Screen Urine Negative (Negative)
[2023-07-23] VITALS (32 sets, daily range): BP systolic 129–162; BP diastolic 58–110; PULSE 61–128; RESP 10–29; TEMP 36.1–37.8; O2SAT 92–99
[2023-07-23] MEDS: morphine 4 mg/mL SDV 1 mL 2 MG IVP ×3 (00:25→09:55)
[2023-07-23] MEDS: LORazepam 2 mg/mL INJ 10 mL MDV IVP (00:26)
[2023-07-23 00:43] LABS: Estmated Average Glucose 97
[2023-07-23] MEDS: sodium chloride 0.9% 1,000 ML 125 ML IV ×3 (02:34→20:32)
[2023-07-23] MEDS: piperacillin-tazobactam 3.375 GM in sodium chloride 0.9% (plus) 50 ML IV ×3 (02:41→18:20)
[2023-07-23 04:04] LABS: Basophils # 0.1 10^3/uL (0.0-0.1); Basophils % 1.2 %; Eosinophils # 0.1 10^3/uL (0.0-0.8); Eosinophils % 1.2 %; Hematocrit 33.5 % (37-53); Lymphocytes # 0.9 10^3/uL (0.8-4.8); Lymphocytes % 20.7 %; Mean Corpuscular HGB Conc 33.7 g/dL (30-55); Mean Corpuscular Hemoglobin 31.3 pg (27-33); Mean Corpuscular Volume 92.8 fl (82-101); Mean Platelet Volume 9.8 fL (7.4-10.4); Monocytes # 0.4 10^3/uL (0.2-0.9); Monocytes % 9.4 %; Neutrophils # 2.86 10^3/uL (1.8-7.7); Neutrophils % 67.3 %; Nucleated Red Blood Cells % 0 %; Platelet Count 333 10^3/cmm (157-399); Red Blood Count 3.61 10^6/uL (3.85-5.65); Red Cell Distribution Width 14.8 % (12.1-15.1); White Blood Count 4.25 10^3/uL (3.29-11.43)
[2023-07-23 04:26] LABS: Lactic Sepsis W/Reflex 1.2 mmol/L (0.5-2.2)
[2023-07-23 04:30] LABS: Alanine Aminotransferase 37 U/L (0-41); Albumin Level 3.6 g/dL (3.5-5.2); Alkaline Phosphatase 159 U/L (40-130); Anion Gap 18.2 (5-19); Aspartate Amino Transferase 71 U/L (0-40); Blood Urea Nitrogen 13 mg/dL (6-20); Calcium 8.3 mg/dL (8.5-10.5); Carbon Dioxide 23 mmol/L (22-29); Chloride 98 mmol/L (98-107); Globulin 3.4 g/dL (1.3-4.6); Glomerular Filtration Rate 101.1 mL/min (90-130); Glucose 120 mg/dL (65-115); Magnesium 1.5 mg/dL (1.7-2.3); Osmolality Calculated 281 mOsm/kg (285-295); Phosphorus 2.4 mg/dL (2.5-4.5); Potassium 4.2 mmol/L (3.5-5.1); Sodium 135 mmol/L (136-145); Total Bilirubin 0.5 mg/dL (0.15-1.2)
[2023-07-23] MEDS: chlordiazePOXIDE 25 mg Capsule PO ×4 (06:01→23:22)
[2023-07-23] MEDS: vancomycin 1,500 MG/300 ML PIGGYBACK 200 MG IV ×2 (06:03→18:25)
--- NOTE | 2023-07-23 06:22 | PC.NURSE ---
Patient's cigarettes placed in pyxis
--- NOTE | 2023-07-23 06:58 | P.PN_ITS ---
Subjective 2 Subjective: Patient seen bedside this morning, denies any acute events overnight. Denies any pain to the left or right foot. Patient denies any subjective nausea, vomiting, fever, chills, shortness of breath or chest pain. Vitals/I&O/Wt Last Vital Signs Temp 100.0 F H 07/23/23 03:38 Pulse 96 07/23/23 06:00 Resp 18 07/23/23 06:00 BP 153/85 07/23/23 06:00 Pulse Ox 95 07/23/23 06:00 O2 Del Method Room Air 07/23/23 06:00 07/22/23 07/22/23 07/23/23 14:59 22:59 06:59 Intake Total 1913.410 / 8935.148 6416.790 / 3136.200 Output Total 800 / 800 Balance 1913.410 / 1913.410 422.790 / 2336.200 Weight last 48 hrs Weight 192 lb 14.4 oz Weight 189 lb 8 oz Weight 184 lb Physical Exam 2 Narrative: GENERAL: Patient is alert and oriented ?3 and in no acute distress. The following is a focused bilateral lower extremity exam. VASCULAR: Dorsalis pedis palpable +2 bilaterally. Posterior tibial arteries +2. Capillary refill time less than 3 seconds to the distal left second toe bilaterally. Calf is supple and nontender proximally and distally. Decreased pedal hair growth bilaterally. NEUROLOGICAL: Protective sensation intact to light touch. DERMATOLOGICAL: Mustafa grade 3 wound at the plantar medial aspect of the left hallux with erythema localized to the left great toe, wound measures 1.9 cm x 1.4 cm x 0.3 cm exposed to myofascial layer, does not probe to bone, tunnel or undermine. Grade 1 wound limited to breakdown of skin left great toe with erythema localized to the left great toe without proximal lymphangitic streaking. MUSCULOSKELETAL: Tenderness to palpation at great toe bilaterally, no crepitus with soft tissue palpation. Able to wiggle toes on command. Data 07/23/23 03:15 07/23/23 03:15 Micro: Microbiology 07/22/23 17:42 Blood Culture - Preliminary Blood SPECIMEN COLLECTED 07/22/23 17:40 Blood Culture - Preliminary Blood SPECIMEN COLLECTED A&P Assessment and plan (1) Frostbite of toe: (2) Non-pressure chronic ulcer of other part of left foot with necrosis of muscle: Plan 52-year-old male presents with frostbite, most severe is his left great toe, his Umstafa grade 3 wound exposed to myofascial layer with erythema about the left great toe. -Patient being admitted for alcohol withdrawal -Patient has palpable pedal pulses, x-ray negative for osteomyelitis, foreign body or soft tissue edema. -Patient is afebrile, no leukocytosis, ESR 90 low suspicion for osteomyelitis, looking for other sources for elevated sed rate. -Will change wound dressing to Santyl left great toe followed by gauze -Patient scheduled for incision and debridement left and right foot tomorrow 07/24/2023 at noon per patient's request, states he did not want have surgery today. Attestations 2 Medical Necessity Statement*: Frostbite bilateral foot Coding Level of Care Code Acute Code for g Fwd Diagnoses Frostbite of toe T33.839A Non-pressure chronic ulcer of other part of left foot with necrosis of muscle L97.523
[2023-07-23] MEDS: folic acid 1 mg Tablet PO (08:11)
[2023-07-23] MEDS: multivitamin therapeutic Tablet 1 TAB PO (08:11)
[2023-07-23] MEDS: thiamine 100 mg Tablet PO (08:11)
[2023-07-23] MEDS: acetaminophen 325 mg Tablet 650 MG PO ×2 (08:16→17:15)
--- NOTE | 2023-07-23 08:55 | PC.PHAR ---
pt states he takes care of his own medications-pt states he no longer has the symbicort 160-4.5mcg ext shows last filled 09/13/22 pt states not had for over a month-pt states no longer takes hctz 25mg daily ext shows last filled 04/11/23 30d/s or buspar 10mg tid filled 04/11/23 30d/s-pt states didnt pickle maker clindamycin 300mg tid filled 07/22/23 10d/s-
[2023-07-23] MEDS: lisinopril 20 mg Tablet PO (09:20)
[2023-07-23] MEDS: diphenhydrAMINE 25 mg Capsule PO ×2 (09:20→17:12)
[2023-07-23] MEDS: magnesium sulfate premix 2 GM/50 ML PIGGYBACK IV (09:20)
[2023-07-23 12:03] LABS: Glucose Point of Care 150 mg/dL (70-110)
[2023-07-23] MEDS: collagenase oint 30 gm 1 APPLIC TOPICAL (13:51)
[2023-07-23] MEDS: HYDROcodone-acetaminophen 5-325 mg Tablet 1 TAB PO ×3 (15:12→23:21)
--- NOTE | 2023-07-23 16:10 | P.PN_ITS ---
Subjective 2 Subjective: Patient was seen this morning, is alert to person, to place, not to time, he tells me he is not going through alcohol withdrawals, but clearly having tremors, denies seeing or hearing things are not there, he tells me that he is not currently using his feet, he did not want to have a debridement today, but will be okay with it being done tomorrow I had a detailed discussion with him about alcohol withdrawal, morbidity and mortality associated, monitoring him for severe alcohol withdrawals given his alcohol level 309 however he tells me that he has never gone through alcohol withdrawal and that currently is not going through alcohol withdrawal, and he tells me that he is is not going to lose both his toes, I was adamant about his clinical condition, morbidity mortality, given the significance of his frostbite, his gangrene there is a significant likelihood that he might lose his toes, or his digits or potentially lose his foot require a below-knee amputation depending on the severity of the infection and that he must except the possibility due to the morbidity and mortality associated with severe infections, risk of sepsis, systemic infections, he seems to understand this but keeps telling me that he has not not going to lose his toes and that he is not going through alcohol withdrawals Vitals/I&O/Wt Last Vital Signs Temp 98.9 F 07/23/23 13:00 Pulse 78 07/23/23 15:00 Resp 12 07/23/23 14:00 BP 134/75 07/23/23 15:00 Pulse Ox 98 07/23/23 15:00 O2 Del Method Room Air 07/23/23 13:00 07/23/23 07/23/23 07/23/23 06:59 14:59 22:59 Intake Total 1222.790 / 3136.200 1520 / 1520 Output Total 800 / 800 450 / 450 Balance 422.790 / 2336.200 1070 / 1070 Weight last 48 hrs Weight 87.498 kg Weight 85.956 kg Weight 83.461 kg Physical Exam 2 Const: COMMON NORMALS: no acute distress and patient oriented x3 Resp: COMMON NORMALS: normal respiratory effort, No retractions, No use of accessory muscles and clear to auscultation bilaterally AUSCULTATION: clear to auscultation bilaterally Cardio: COMMON NORMALS: regular rate, regular rhythm, S1 normal heart sound present and S2 normal heart sound present RATE: regular rate RHYTHM: r egular rhythm HEART SOUNDS: S1 normal heart sound present and S2 normal heart sound present GI: COMMON NORMALS: Normal to inspection, nondistended, normoactive bowel sounds present and non-tender Extremity: COMMON NORMALS: no pedal edema Neuro: COMMON NORMALS: patient oriented x3 Psych: COMMON NORMALS: mental status grossly normal Data 07/23/23 03:15 07/23/23 03:15 Micro: Microbiology 07/22/23 17:42 Blood Culture - Preliminary Blood SPECIMEN COLLECTED 07/22/23 17:40 Blood Culture - Preliminary Blood SPECIMEN COLLECTED A&P Assessment and plan (1) Frostbite of both feet: (2) Cellulitis: Qualifiers: Site of cellulitis: extremity Site of cellulitis of extremity: lower extremity Laterality: right Qualified Code(s): L03.115 - Cellulitis of right lower limb (3) Gangrene: (4) Fall: (5) Open wound of foot, complicated: Qualifiers: Encounter type: initial encounter Laterality: unspecified laterality Qualified Code(s): S91.309A - Unspecified open wound, unspecified foot, initial encounter (6) COPD (chronic obstructive pulmonary disease): (7) Current every day smoker: (8) Alcohol withdrawal: Plan Alcohol withdrawal -Banana bag -Scheduled Librium 25 mg p.o. every 6 hours -[facility] protocol -Monitor mentation closely Fall -From his porch -Does not remember the event, does not exactly know if there is significant head trauma .-Does report diffuse musculoskeletal pain -CT head, CT neck, CT chest abdomen pelvis, no acute fractures -CPK 59 Acute encephalopathy -Possibly related to alcohol withdrawal, possible concussion from his fall -CT head no acute fracture -CT neck no acute fracture -Blood cultures, UA WNL -Thiamine, folic acid Elevated lactic acid 1.2 Cellulitis, gangrene, open wounds bilateral extremities, frostbite -Podiatry consulted for debridement -Arterial ultrasound ordered as patient is a smoker, WNL -Pro-Jimbo 0.06, CRP 20.7, sed rate 90 -Blood cultures -Vancomycin, Zosyn Sinus tachycardia, likely from alcohol withdrawal, monitor Dehydration, IV fluids Spoke to ER provider, spoke to patient spoke to nursing staff Attestations 2 Medical Necessity Statement*: Patient requires hospitalization for alcohol withdrawal, acute encephalopathy, cellulitis, gangrene, inpatient, greater than 2 midnights Diagnoses Frostbite of both feet T33.821A; T33.822A Cellulitis of right lower extremity L03.115 Site of cellulitis: extremity Site of cellulitis of extremity: lower extremity Laterality: right Gangrene I96 Fall W19.XXXA Open wound of foot with complication, unspecified laterality, initial encounter S91.309A Encounter type: initial encounter Laterality: unspecified laterality COPD (chronic obstructive pulmonary disease) J44.9 Current every day smoker F17.200 Alcohol withdrawal F10.939
[2023-07-23] MEDS: pantoprazole 40 mg SDV IVP (17:15)
--- NOTE | 2023-07-23 17:34 | PC.NURSE ---
Shift SUmmary: uneventful shift. Patient rested in bed throughout most of the day, but was occasionally up to the bedside commode and walked the unit. Started on lisinoprol and benadryl (home meds). ANtibiotics received as ordred. 1 dressing change performed to both feet. Debridement is scheduled for tommorow around 1200. NPO at midnight.
[2023-07-23] MEDS: nicotine 21 mg Patch 1 PATCH TRANSDERMA (17:39)
[2023-07-24] VITALS (84 sets, daily range): BP systolic 115–153; BP diastolic 66–116; PULSE 46–92; RESP 14–32; TEMP 36.5–37.6; O2SAT 86–100; BMI 25.4
[2023-07-24] MEDS: diphenhydrAMINE 25 mg Capsule PO ×3 (01:15→18:44)
[2023-07-24] MEDS: HYDROcodone-acetaminophen 5-325 mg Tablet 1 TAB PO ×4 (03:16→23:07)
[2023-07-24] MEDS: piperacillin-tazobactam 3.375 GM in sodium chloride 0.9% (plus) 50 ML IV ×3 (03:16→18:40)
[2023-07-24] MEDS: sodium chloride 0.9% 1,000 ML 125 ML IV (04:59)
[2023-07-24 06:20] LABS: Basophils % 0.9 %; Eosinophils # 0.1 10^3/uL (0.0-0.8); Eosinophils % 2.8 %; Hematocrit 32.5 % (37-53); Lymphocytes # 0.7 10^3/uL (0.8-4.8); Mean Corpuscular HGB Conc 32.6 g/dL (30-55); Mean Corpuscular Hemoglobin 31.1 pg (27-33); Mean Corpuscular Volume 95.3 fl (82-101); Mean Platelet Volume 9.8 fL (7.4-10.4); Monocytes # 0.1 10^3/uL (0.2-0.9); Nucleated Red Blood Cells % 0 %; Platelet Count 205 10^3/cmm (157-399); Red Blood Count 3.41 10^6/uL (3.85-5.65); Red Cell Distribution Width 14.6 % (12.1-15.1); White Blood Count 3.24 10^3/uL (3.29-11.43)
[2023-07-24] MEDS: vancomycin 1,500 MG/300 ML PIGGYBACK 200 MG IV (06:22)
[2023-07-24] MEDS: chlordiazePOXIDE 25 mg Capsule PO ×3 (06:22→23:07)
--- NOTE | 2023-07-24 06:39 | PM.PN ---
Subjective Subjective: Patient seen bedside this a.m., is n.p.o. in preparation for surgical debridement left great toe. Denies any acute events overnight. No complaints. Vitals/I&O/Wt Last Vital Signs Temp 98.4 F 07/24/23 06:10 Pulse 58 L 07/24/23 06:10 Resp 15 07/24/23 06:10 BP 128/82 07/24/23 06:10 Pulse Ox 97 07/24/23 06:10 O2 Del Method Room Air 07/23/23 20:00 07/23/23 07/23/23 07/24/23 14:59 22:59 06:59 Intake Total 1520 / 1520 1940 / 3460 1000 / 4460 Output Total 450 / 450 375 / 825 Balance 1070 / 1070 1565 / 2635 1000 / 3635 Weight last 48 hrs Weight 192 lb 9 oz Weight 192 lb 14.4 oz Weight 189 lb 8 oz Weight 184 lb Physical Exam Narrative: GENERAL: Patient is alert and oriented ?3 and in no acute distress. The following is a focused bilateral lower extremity exam. VASCULAR: Dorsalis pedis palpable +2 bilaterally. Posterior tibial arteries +2. Capillary refill time less than 3 seconds to the distal left second toe bilaterally. Calf is supple and nontender proximally and distally. Decreased pedal hair growth bilaterally. NEUROLOGICAL: Protective sensation intact to light touch. DERMATOLOGICAL: Mustafa grade 3 wound at the plantar medial aspect of the left hallux with erythema localized to the left great toe, wound measures 1.9 cm x 1.4 cm x 0.3 cm exposed to myofascial layer, does not probe to bone, tunnel or undermine. Grade 1 wound limited to breakdown of skin left great toe with erythema localized to the left great toe without proximal lymphangitic streaking. MUSCULOSKELETAL: Tenderness to palpation at great toe bilaterally, no crepitus with soft tissue palpation. Able to wiggle toes on command. Data 07/24/23 05:56 07/24/23 05:56 Micro: Microbiology 07/22/23 17:42 Blood Culture - Preliminary Blood NEGATIVE TO DATE 07/22/23 17:40 Blood Culture - Preliminary Blood NEGATIVE TO DATE A&P Assessment and plan (1) Frostbite of toe: (2) Non-pressure chronic ulcer of other part of left foot with necrosis of muscle: I reviewed at length with the patient, the risks, potential complications, benefits, alternatives, expectations, and typical outcomes associated with the surgery. The risks and potential complications were explained in detail, including but not limited to infection, wound dehiscence or soft tissue complications, bleeding and hematoma, chronic edema, neuritis or nerve damage producing numbness or chronic pain, CRPS, failure to relieve pain or worsening pain, thick / painful / unsightly scar, limited motion / stiffness, malposition, delayed union, malunion, or nonunion, fracture, reaction to implants, anesthetic complications, venous thromboembolism, and deformity recurrence. I discussed the notion of no regrets with the patient as it pertains to complications and outcomes. The patient seemed to understand the nature of the proposed care and required convalescence. They asked appropriate questions, answered to their satisfaction. They are aware no guarantees can be made as to a satisfactory outcome and they understand there may be other possible unforeseen complications or outcomes not listed here that will be treated accordingly if they arise. There were no written or implied guarantees given to the patient. They gave informed consent to proceed. Plan 52-year-old male presents with frostbite, most severe is his left great toe, his Mustafa grade 3 wound exposed to myofascial layer with erythema about the left great toe. -Patient being admitted for alcohol withdrawal -Patient has palpable pedal pulses, x-ray negative for osteomyelitis, foreign body or soft tissue edema. -Patient is afebrile, no leukocytosis, ESR 90 low suspicion for osteomyelitis, looking for other sources for elevated sed rate. -Will change wound dressing to Santyl left great toe followed by gauze Patient is n.p.o. in preparation for surgical debridement left great toe. Wishes to proceed. Attestations Medical Necessity Statement*: Frostbite, toes. Coding Level of Care Code Acute Code for [facility] Diagnoses Frostbite of toe T33.839A Non-pressure chronic ulcer of other part of left foot with necrosis of muscle L97.523
[2023-07-24 06:41] LABS: Vancomycin Trough 7.7 ug/mL (10-15)
[2023-07-24 06:43] LABS: Alanine Aminotransferase 83 U/L (0-41); Albumin Level 3.5 g/dL (3.5-5.2); Alkaline Phosphatase 186 U/L (40-130); Aspartate Amino Transferase 334 U/L (0-40); Blood Urea Nitrogen 11 mg/dL (6-20); Calcium 8.5 mg/dL (8.5-10.5); Carbon Dioxide 23 mmol/L (22-29); Chloride 105 mmol/L (98-107); Globulin 2.7 g/dL (1.3-4.6); Glomerular Filtration Rate 140.9 mL/min (90-130); Glucose 111 mg/dL (65-115); Magnesium 1.5 mg/dL (1.7-2.3); Osmolality Calculated 286 mOsm/kg (285-295); Phosphorus 2.5 mg/dL (2.5-4.5); Sodium 138 mmol/L (136-145); Total Protein 6.2 g/dL (6.6-8.7)
[2023-07-24] MEDS: thiamine 100 mg Tablet PO (08:44)
[2023-07-24] MEDS: multivitamin therapeutic Tablet 1 TAB PO (08:44)
[2023-07-24] MEDS: folic acid 1 mg Tablet PO (08:44)
[2023-07-24] MEDS: lisinopril 20 mg Tablet PO (08:44)
[2023-07-24] MEDS: magnesium sulfate premix 2 GM/50 ML PIGGYBACK IV (08:56)
[2023-07-24] MEDS: collagenase oint 30 gm 1 APPLIC TOPICAL (11:23)
--- NOTE | 2023-07-24 11:58 | W.PM.OPSUD ---
Surgery/Procedure H&P Update DATE OF PROCEDURE: July 24, 2023 DATE H&P PERFORMED: 07/22/23 H&P UPDATE INFORMATION: I have reviewed H&P completed within last 30 days, I have examined patient prior to procedure, No changes to prior documentation and H&P is in [facility] EMR on date indicated PREOP DIAGNOSIS: Frostbite left great toe PLANNED PROCEDURE: Operation Date: 07/24/23 12:00 Proposed Procedures p Incision and debridement left foot(Left) - Yraed Eubanks DPM
[2023-07-24] MEDS: lidocaine 2% INJ 20 mL INJECTION (12:13)
--- NOTE | 2023-07-24 12:33 | PC.NURSE ---
1225 Surgery crew brought patient back to ICU 2 via bed and drowsy but awake. New dressing to left foot, dry and intact. VSS.
--- NOTE | 2023-07-24 12:43 | P.BOP_ITS ---
Date of Procedure: 07/24/23 Surgeon: Yared Eubanks DPM Cnc Mill Operator(s): Koko Procedure(s) performed: Incision and debridement left foot Findings of the procedure(s): Devitalized tissue down to to and including as well as below myofascial layer. Estimated blood loss: 5 mL Specimen(s) removed: None Post-operative diagnosis: Gangrene left great toe no complications with anesthesia or surgery
--- NOTE | 2023-07-24 12:44 | PM.OP ---
Operative Report Date of procedure: July 24, 2023 Pre-op diagnosis: Gangrene left great toe Post-op diagnosis: Gangrene left great toe Post-op findings: devitalized tissue down to and including myofascial layer Procedure done: Incision and debridement down to and including subfascial layer left great toe. CPT code 49260 Implants: None Specimens removed/disposition: None Pathology: None Surgeon: Yared Eubanks DPM Paint Prep Technician: Koko Estimated blood loss: 5 No tourniquet IV fluids: 0 Urine output: 0 Complications: None Brief History: Frostbite left great toe after having accidentally locked himself out of his camper overnight, was inebriated. I reviewed at length with the patient, the risks, potential complications, benefits, alternatives, expectations, and typical outcomes associated with the surgery. The risks and potential complications were explained in detail, including but not limited to infection, wound dehiscence or soft tissue complications, bleeding and hematoma, chronic edema, neuritis or nerve damage producing numbness or chronic pain, CRPS, failure to relieve pain or worsening pain, thick / painful / unsightly scar, limited motion / stiffness, malposition, delayed union, malunion, or nonunion, fracture, reaction to implants, anesthetic complications, venous thromboembolism, and deformity recurrence. I discussed the notion of no regrets with the patient as it pertains to complications and outcomes. The patient seemed to understand the nature of the proposed care and required convalescence. They asked appropriate questions, answered to their satisfaction. They are aware no guarantees can be made as to a satisfactory outcome and they understand there may be other possible unforeseen complications or outcomes not listed here that will be treated accordingly if they arise. There were no written or implied guarantees given to the patient. They gave informed consent to proceed. Procedure: Under mild sedation patient was brought to the operating room and remained on the gurney in supine position. A timeout was performed. Anesthesia was then administered by the anesthesia service. Local anesthesia was injected by myself consisting of 20 cc of 1% lidocaine plain and a left reverse Ledesma block fashion. Well-padded pneumatic tourniquet applied to the left ankle of note this was never inflated during the procedure. Left lower extremity was scrubbed, prepped and draped utilizing normal aseptic technique. Attention was directed to the left great toe where a devitalized and gangrenous appearing wound with foul-smelling odor was appreciated. Wound was sharply incised down to myofascial layer with debridement excisionally in nature with pickups and a #15 blade of all devitalized tissue. Postdebridement wound measurement 4 cm x 2.7 cm x 0.3 cm, wound was irrigated with copious amounts of sterile skin solution. No further devitalized tissue was appreciated. Wound did not extend down to bone. Dressing consisting of Adaptic, sterile 4 x 4's, Anthony, Kerlix and Mono wrap was applied to the left foot. Patient tolerated the procedure and anesthesia well and was transferred to the PACU with vital signs stable and vascular status intact. Following a period of postoperative monitoring he will be transferred back to the ICU to continue oral antibiotics. Will continue with wound care while hospitalized with close follow-up in podiatry clinic with Dr. Eubanks next week. Planning on 14-day oral antibiotic course at discharge.
--- NOTE | 2023-07-24 12:51 | P.PN_ITS ---
Subjective 2 Subjective: patient was seen this morning, he denies fever, no chills, no nausea, no vomiting, does complain of pain in bilateral lower extermities Vitals/I&O/Wt Last Vital Signs Temp 97.7 F 07/24/23 12:30 Pulse 62 07/24/23 12:30 Resp 16 07/24/23 12:30 BP 122/84 07/24/23 12:30 Pulse Ox 95 07/24/23 12:30 O2 Del Method Room Air 07/24/23 10:26 07/23/23 07/24/23 07/24/23 22:59 06:59 14:59 Intake Total 1940 / 3460 1000 / 4460 516.667 / 516.667 Output Total 375 / 825 200 / 200 Balance 1565 / 2635 1000 / 3635 316.667 / 316.667 Weight last 48 hrs Weight 87.345 kg Weight 87.498 kg Weight 85.956 kg Weight 83.461 kg Physical Exam 2 Const: COMMON NORMALS: no acute distress and patient oriented x3 Resp: COMMON NORMALS: normal respiratory effort, No retractions, No use of accessory muscles and clear to auscultation bilaterally AUSCULTATION: clear to auscultation bilaterally Cardio: COMMON NORMALS: regular rate, regular rhythm, S1 normal heart sound present and S2 normal heart sound present RATE: regular rate RHYTHM: r egular rhythm HEART SOUNDS: S1 normal heart sound present and S2 normal heart sound present GI: COMMON NORMALS: Normal to inspection, nondistended, normoactive bowel sounds present and non-tender Extremity: COMMON NORMALS: no pedal edema NARRATIVE EXTREMITY EXAM: bilateral lower extremities wrapped Neuro: COMMON NORMALS: patient oriented x3 Psych: COMMON NORMALS: mental status grossly normal Data 07/24/23 05:56 07/24/23 05:56 Micro: Microbiology 07/22/23 17:42 Blood Culture - Preliminary Blood NEGATIVE TO DATE 07/22/23 17:40 Blood Culture - Preliminary Blood NEGATIVE TO DATE A&P Assessment and plan (1) Frostbite of both feet: (2) Cellulitis: Qualifiers: Laterality: right Site of cellulitis: extremity Site of cellulitis of extremity: lower extremity Qualified Code(s): L03.115 - Cellulitis of right lower limb (3) Gangrene: (4) Fall: (5) Open wound of foot, complicated: Qualifiers: Encounter type: initial encounter Laterality: unspecified laterality Qualified Code(s): S91.309A - Unspecified open wound, unspecified foot, initial encounter (6) COPD (chronic obstructive pulmonary disease): (7) Current every day smoker: (8) Alcohol withdrawal: Plan Alcohol withdrawal -Banana bag -Scheduled Librium 25 mg p.o. every 8 hours -[facility] protocol -Monitor mentation closely Fall -From his porch -Does not remember the event, does not exactly know if there is significant head trauma .-Does report diffuse musculoskeletal pain -CT head, CT neck, CT chest abdomen pelvis, no acute fractures -CPK 59 Acute encephalopathy, resolving -Possibly related to alcohol withdrawal, possible concussion from his fall -CT head no acute fracture -CT neck no acute fracture -Blood cultures, UA WNL -Thiamine, folic acid Elevated lactic acid 1.2 Cellulitis, gangrene, open wounds bilateral extremities, frostbite -Podiatry consulted for debridement, will receive debriedment today -Arterial ultrasound ordered as patient is a smoker, WNL -Pro-Jimbo 0.06, CRP 20.7, sed rate 90 -Blood cultures -Vancomycin, Zosyn Sinus tachycardia, likely from alcohol withdrawal, monitor Dehydration, resolved Spoke to ER provider, spoke to patient spoke to nursing staff Plan for today, monitor for alcohol withdrawal, status postsurgical intervention continue IV antibiotics monitoring next report for 8 hours moved to [facility] 2 Medical Necessity Statement*: Patient requires hospitalization for alcohol withdrawal, acute encephalopathy, cellulitis gangrene open wounds of bilateral extremities requiring surgical debridement Diagnoses Frostbite of both feet T33.821A; T33.822A Cellulitis of right lower extremity L03.115 Laterality: right Site of cellulitis: extremity Site of cellulitis of extremity: lower extremity Gangrene I96 Fall W19.XXXA Open wound of foot with complication, unspecified laterality, initial encounter S91.309A Encounter type: initial encounter Laterality: unspecified laterality COPD (chronic obstructive pulmonary disease) J44.9 Current every day smoker F17.200 Alcohol withdrawal F10.939
--- NOTE | 2023-07-24 13:10 | P.ANESASSM_ITS ---
Pre-Anesthetic Assessment Height/Weight: Height 1.85 m Weight 87.345 kg Temp Pulse Resp BP Pulse Ox O2 Del Method 97.7 F 62 16 122/84 95 Room Air 07/24/23 12:30 07/24/23 12:30 07/24/23 12:30 07/24/23 12:30 07/24/23 12:30 07/24/23 10:26 Preop Diagnosis: Frostbite left great toe Operation Date: 07/24/23 12:00 Proposed Procedures p Incision and debridement left foot(Left) - Yared Eubanks DPM Familial anesthetic complications: none Was Beta Diogo taken within 24 hours: N/A Was Clonidine taken within 24 hours: N/A Last intake: Intake Last Liquid Date 07/23/23 Last Liquid Time 20:00 Last Solid Date 07/23/23 Last Solid Time 20:00 Social Alcohol and Tobacco Exam alert and regular rate & rhythm Airway Submandibular: within normal limits Cervical ROM: within normal limits Mallampati: Class II Pulmonary Chronic Obstructive Pulmonary Disease CV/HEM Hypertension GI Gastroesophageal Reflux Disease Neuropsych Anxiety and Depression Anesthetic Plan ASA status: 3 Anesthesia: MAC Medications/Allergies Home Medications Medication Instructions Recorded Confirmed Last Taken Type albuterol sulfate 90 mcg/actuation 2 puff inhalation 6XD PRN 08/03/22 07/23/23 Unknown Rx aerosol inhaler (Ventolin HFA) shortness of breath or wheezing #8.5 grams lisinopril 20 mg tablet 20 mg PO DAILY 30 days #30 tabs 04/11/23 07/23/23 Unknown Rx pantoprazole 40 mg tablet,delayed 40 mg PO BID 30 days #60 tabs 04/11/23 07/23/23 Unknown Rx release clindamycin HCl 300 mg capsule 300 mg PO TID 10 days #30 caps 07/22/23 07/23/23 Unknown Rx diphenhydramine HCl 25 mg tablet 25 mg PO TID 07/23/23 07/23/23 Unknown History (Allergy (diphenhydramine)) multivitamin 1 tab PO DAILY 07/23/23 07/23/23 Unknown History Allergies Allergy/AdvReac Type Severity Reaction Status Date / Time No Known Allergies Allergy Verified 07/23/23 08:51 Current Medications Generic Name Dose Route Start Last Admin Trade Name Freq PRN Reason Stop Dose Admin Acetaminophen 650 mg 07/22/23 18:08 07/23/23 17:15 Acetaminophen 325 Mg Tablet PO 650 mg Q6H PRN Administration Mild/Mod Pain Or Temp >/= 101 Hydrocodone Bitart/Acetaminophen 1 tab 07/23/23 14:36 07/24/23 06:22 Hydrocodone-Acetaminophen 5-325 Mg Tablet PO 1 tab Q4H PRN Administration MODERATE PAIN Collagenase 1 applic 07/23/23 09:00 07/24/23 11:23 Collagenase Oint 30 Gm TOPICAL 1 applic DAILY BRIDGETTE Administration Diphenhydramine HCl 25 mg 07/23/23 08:51 07/24/23 08:43 Diphenhydramine 25 Mg Capsule PO 25 mg Q8H PRN Administration SECRETIONS Enoxaparin Sodium 40 mg 07/22/23 18:27 07/23/23 17:43 Enoxaparin 40 Mg/0.4 Ml Syringe SUBCUT Not Given Q24H [facility] Folic Acid 1 mg 07/23/23 09:00 07/24/23 08:44 Folic Acid 1 Mg Tablet PO 1 mg DAILY BRIDGETTE Administration Piperacillin Sod/Tazobactam 50 mls @ 12.5 mls/hr 07/22/23 19:00 07/24/23 11:19 Sod 3.375 gm/ Sodium Chloride IV 12.5 mls/hr Q8H BRIDGETTE Administration Protocol Lisinopril 20 mg 07/23/23 09:00 07/24/23 08:44 Lisinopril 20 Mg Tablet PO 20 mg DAILY BRIDGETTE Administration Lorazepam 2 mg 07/22/23 17:49 07/23/23 00:26 Lorazepam 2 Mg/Ml Inj 10 Ml Mdv IVP 2 mg PRN PRN Administration WITHDRAWAL Protocol Multivitamins Therapeutic 1 tab 07/23/23 09:00 07/24/23 08:44 Multivitamin Therapeutic Tablet PO 1 tab DAILY BRIDGETTE Administration Nicotine 1 patch 07/23/23 17:19 07/24/23 08:45 Nicotine 21 Mg Patch TRANSDERMA Not Given DAILY BRIDGETTE Pantoprazole Sodium 40 mg 07/22/23 18:15 07/23/23 17:15 Pantoprazole 40 Mg Sdv IVP 40 mg Q24H BRIDGETTE Administration Thiamine Mononitrate 100 mg 07/23/23 09:00 07/24/23 08:44 Thiamine 100 Mg Tablet PO 100 mg DAILY BRIDGETTE Administration PFSH Anesthesia Medical History (Updated 07/22/23 @ 18:54 by Yared Eubanks DPM) History of alcoholism Excessive salivation Surgical History (Updated 07/22/23 @ 18:19 by Eulogio Pirce MD) No pertinent past surgical history Family History (Updated 07/22/23 @ 18:18 by Eulogio Price MD) Mother Diabetes Cancer Social History Smoking and tobacco/nicotine status: current every day tobacco/nicotine user cigarettes Packs smoked per day: 1.5 Years cigarettes smoked: 33 [ Other cigarette details: also smokes cigars] and cigars Years smoked cigars: 33 Alcohol intake: current Alcohol intake frequency: 3 or more drinks per day Alcohol type: other Substance/Drug Use: never Marital status: Single Current occupational status: unemployed Data Anesthesia 07/24/23 05:56 07/24/23 05:56 Short CBC 07/22/23 07/23/23 07/24/23 Range/Units 17:28 03:15 05:56 WBC 5.49 4.25 3.24 L (3.29-11.43) 10^3/uL Hgb 13.60 11.30 10.60 L (11.27-16.99) g/dL Hct 40.4 33.5 L 32.5 L (37-53) % MCV 92.9 92.8 95.3 (82-101) fl Plt Count 507 H 333 D 205 D (157-399) 10^3/cmm Neut % (Auto) 66.8 67.3 71.0 % Neut # (Auto) 3.67 2.86 2.30 (1.8-7.7) 10^3/uL BMP 07/22/23 07/23/23 07/24/23 17:28 03:15 05:56 Sodium 136 135 L 138 Potassium 4.8 4.2 4.0 Chloride 92 L 98 105 Carbon Dioxide 18 L 23 23 BUN 14 13 11 Creatinine 0.7 0.8 0.6 L Glucose 64 L 120 H 111 Calcium 9.0 8.3 L 8.5 Cardiac Enzymes 07/22/23 Range/Units 17:28 Creatine Kinase 59 (39-308) U/L NT-Pro-B Natriuret Pep 40 (0-125) pg/mL Liver Function 0207/23/23 07/24/23 Range/Units 17:28 03:15 05:56 Total Bilirubin 0.5 0.5 1.0 (0.15-1.2) mg/dL AST 112 H 71 H 334 H (0-40) U/L ALT 54 H 37 83 H (0-41) U/L Alkaline Phosphatase 204 H 159 H 186 H (40-130) U/L Albumin 4.3 3.6 3.5 (3.5-5.2) g/dL Urine 07/22/23 Range/Units 17:30 Urine Color Yellow (Yellow) Urine Appearance Clear (CLEAR) Urine pH 5 (5-7) Ur Specific Joice 1.020 (1.005-1.030) Urine Protein Neg (Negative) Urine Glucose (UA) Norm (Normal) Urine Ketones 2+ H (Negative) Urine Nitrate Negative (Negative) Urine Bilirubin Neg (Negative) Ur Leukocyte Esterase Negative (Negative) Coags 07/22/23 17:28 ESR 90 H PT 13.50 INR 1.00 C-Reactive Protein 20.7 H Microbiology 07/22/23 17:42 Blood Culture - Preliminary Blood NEGATIVE TO DATE 07/22/23 17:40 Blood Culture - Preliminary Blood NEGATIVE TO DATE Cardiac Studies: 2 No Data to Display
--- NOTE | 2023-07-24 13:37 | ANE.PACU2 ---
Inpatient post-anesthesia follow up: Airway intact: Yes Vital signs: Temperature 97.7 F Pulse Rate 62 Respiratory Rate 16 Blood Pressure 122/84 Pulse Oximetry 95 Oxygen Delivery Me thod Room Air Oxygen Flow Rate Fraction of Inspir ed Oxygen Hydration adequate: Yes Nausea and vomiting: No Pain level: 2 Mental status: Baseline
[2023-07-24] MEDS: vancomycin 1,000 MG in sodium chloride 0.9% 250 ML 250 MG IV ×2 (14:37→23:07)
[2023-07-24] MEDS: pantoprazole 40 mg SDV IVP (17:50)
[2023-07-24] MEDS: enoxaparin 40 mg/0.4 mL Syringe SUBCUT (17:53)
--- NOTE | 2023-07-24 18:28 | PC.NURSE ---
1819 Ate dinner well. NO c/o's Transfered to [facility] via wheelchair and with all clothes and coat. Awake and alert and nurses at bedside when I left patient in new bed in [facility].
[2023-07-25] MEDS: piperacillin-tazobactam 3.375 GM in sodium chloride 0.9% (plus) 50 ML IV (03:34)
[2023-07-25 03:55] VITALS: BP 138/81; PULSE 88; RESP 16; TEMP 37.1; O2SAT 95
[2023-07-25 05:56] LABS: Eosinophils # 0.2 10^3/uL (0.0-0.8); Eosinophils % 5.3 %; Hematocrit 34.2 % (37-53); Lymphocytes # 0.7 10^3/uL (0.8-4.8); Mean Corpuscular Hemoglobin 31.7 pg (27-33); Mean Corpuscular Volume 95.8 fl (82-101); Mean Platelet Volume 10.1 fL (7.4-10.4); Monocytes # 0.2 10^3/uL (0.2-0.9); Monocytes % 4.6 %; Neutrophils # 2.82 10^3/uL (1.8-7.7); Neutrophils % 71.8 %; Nucleated Red Blood Cells % 0 %; Platelet Count 144 10^3/cmm (157-399); Red Blood Count 3.57 10^6/uL (3.85-5.65); Red Cell Distribution Width 14.6 % (12.1-15.1); White Blood Count 3.93 10^3/uL (3.29-11.43)
[2023-07-25] MEDS: chlordiazePOXIDE 25 mg Capsule PO (05:58)
[2023-07-25] MEDS: HYDROcodone-acetaminophen 5-325 mg Tablet 1 TAB PO ×2 (05:58→10:26)
[2023-07-25 06:12] LABS: Vancomycin Trough 12.3 ug/mL (10-15)
[2023-07-25 06:18] LABS: Alanine Aminotransferase 78 U/L (0-41); Albumin Level 3.3 g/dL (3.5-5.2); Alkaline Phosphatase 181 U/L (40-130); Aspartate Amino Transferase 140 U/L (0-40); Blood Urea Nitrogen 7 mg/dL (6-20); Calcium 8.5 mg/dL (8.5-10.5); Carbon Dioxide 23 mmol/L (22-29); Chloride 104 mmol/L (98-107); Globulin 2.5 g/dL (1.3-4.6); Glomerular Filtration Rate 173.9 mL/min (90-130); Glucose 105 mg/dL (65-115); Magnesium 1.5 mg/dL (1.7-2.3); Osmolality Calculated 282 mOsm/kg (285-295); Phosphorus 2.3 mg/dL (2.5-4.5); Sodium 137 mmol/L (136-145); Total Bilirubin 0.5 mg/dL (0.15-1.2); Total Protein 5.8 g/dL (6.6-8.7)
[2023-07-25] MEDS: vancomycin 1,000 MG in sodium chloride 0.9% 250 ML 250 MG IV (06:26)
--- NOTE | 2023-07-25 06:52 | PM.PN ---
Subjective Subjective: Patient seen bedside this a.m., denies any acute events overnight. Tolerating regular diet. Moved to [facility]. States that his foot pain is controlled with medication. Patient denies any subjective nausea, vomiting, fever, chills, shortness of breath or chest pain. Vitals/I&O/Wt Last Vital Signs Temp 98.7 F 07/25/23 03:55 Pulse 88 07/25/23 03:55 Resp 16 07/25/23 03:55 BP 138/81 07/25/23 03:55 Pulse Ox 95 07/25/23 03:55 O2 Del Method Room Air, Nasal Cannula 07/25/23 03:55 07/24/23 07/24/23 07/25/23 14:59 22:59 06:59 Intake Total 866.667 / 983.486 2243.333 / 2420.000 1240 / 3660.000 Output Total 200 / 200 750 / 950 1175 / 2125 Balance 666.667 / 666.667 803.333 / 1470.000 65 / 1535.000 Weight last 48 hrs Weight 199 lb 2 oz Weight 192 lb 9 oz Physical Exam Narrative: GENERAL: Patient is alert and oriented ?3 and in no acute distress. The following is a focused bilateral lower extremity exam. VASCULAR: Dorsalis pedis palpable +2 bilaterally. Posterior tibial arteries +2. Capillary refill time less than 3 seconds to the distal left second toe bilaterally. Calf is supple and nontender proximally and distally. Decreased pedal hair growth bilaterally. NEUROLOGICAL: Protective sensation intact to light touch. DERMATOLOGICAL: Grade 3 wound at left great toe down to myofascial layer with fibrogranular base measures 4 cm x 2.7 cm x 0.3 cm without periwound erythema, warmth or purulent drainage. Grade 2 wound right great toe with fibrogranular base measures 1.9 cm x 1.4 cm x 0.2 cm without periwound erythema, warmth or purulent drainage. MUSCULOSKELETAL: Tenderness to palpation at great toe bilaterally, no crepitus with soft tissue palpation. Able to wiggle toes on command. Data 07/25/23 05:49 07/25/23 05:49 A&P Assessment and plan (1) Frostbite of toe: (2) Non-pressure chronic ulcer of other part of left foot with necrosis of muscle: (3) Non-pressure chronic ulcer of other part of right foot with fat layer exposed: Plan 52-year-old male presents with frostbite with subsequent soft tissue necrosis left and right great toe, gangrenous changes at the left great toe appreciated. -1 day status post surgical debridement down to myofascial layer left great toe, date of operation July 24, 2023. Improved wound bed at left great toe postoperatively. -Ordered postop shoes to be dispensed through physical therapy for offloading -Perform dressing changes with primary dressing of Santyl followed by gauze and Kerlix Patient okay for discharge from podiatry standpoint, no further plans for surgical intervention during this hospitalization. Recommend 2-week oral antibiotic course at discharge Recommend follow-up with Dr. Eubanks in podiatry clinic next Saturday, July 31, 2023 at 8:00 AM Patient to continue once daily dressing change with Gopi, gauze and Kerlix. Attestations Medical Necessity Statement*: Bilateral foot infection Coding Level of Care Code Acute Code for [facility] Diagnoses Frostbite of toe T33.839A Non-pressure chronic ulcer of other part of left foot with necrosis of muscle L97.523 Non-pressure chronic ulcer of other part of right foot with fat layer exposed L97.512
[2023-07-25 07:25] VITALS: BP 144/74; PULSE 71; RESP 17; TEMP 37.3; O2SAT 97
[2023-07-25 07:47] VITALS: PULSE 71; RESP 16; O2SAT 97
[2023-07-25] MEDS: magnesium sulfate premix 2 GM/50 ML PIGGYBACK IV (08:55)
[2023-07-25] MEDS: thiamine 100 mg Tablet PO (08:55)
[2023-07-25] MEDS: multivitamin therapeutic Tablet 1 TAB PO (08:55)
[2023-07-25] MEDS: lisinopril 20 mg Tablet PO (08:56)
[2023-07-25] MEDS: collagenase oint 30 gm 1 APPLIC TOPICAL (08:56)
[2023-07-25] MEDS: folic acid 1 mg Tablet PO (08:56)
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
--- NOTE | 2023-07-25 12:23 | PC.NURSE ---
Patient states that he was told that he would be sent home with something for pain. Spoke with Dr. Eubanks who states that he will send an order to [facility] for the patient for Hydrocodone 5/325 mg 1 every 12 hours as needed for pain for [address] Eubanks is aware patient is being sent home on Librium,
[2023-07-25 12:36] VITALS: PULSE 71; RESP 16; O2SAT 97
[2023-07-26] LABS: Alcohol, Methyl NONE DETECTED (NONE DETECTED); Volatile Analysis Performed On WHOLE BLOOD
== END 2023-07-25 12:37 | disposition home or self-care (01) | DRG 902 ==
LOC: ER 18:13 → ICU 18:43 → MEDSURG 07-24 18:03
PROVIDERS: Podiatrist Foot & Ankle Surgery; Admitting Provider Family Medicine; Emergency Provider Family Medicine; PCP Nurse Practitioner Family; Visit Provider Family Medicine
PROC: 0JBR0ZZ Excision of Left Foot Subcutaneous Tissue and Fascia, Open Approach (ICD-10-PCS; principal; 2023-07-24 12:00)
DX: T34.832A Frostbite with tissue necrosis of left toe(s), initial encounter (principal); F10.239 Alcohol dependence with withdrawal, unspecified; I96 Gangrene, not elsewhere classified; G93.40 Encephalopathy, unspecified; X31.XXXA Exposure to excessive natural cold, initial encounter; T33.831A Superficial frostbite of right toe(s), initial encounter; F10.229 Alcohol dependence with intoxication, unspecified; Y90.8 Blood alcohol level of 240 mg/100 ml or more; W19.XXXA Unspecified fall, initial encounter; F17.210 Nicotine dependence, cigarettes, uncomplicated; L03.031 Cellulitis of right toe; J44.9 Chronic obstructive pulmonary disease, unspecified; R00.0 Tachycardia, unspecified; E86.0 Dehydration; L97.523 Non-pressure chronic ulcer of other part of left foot with necrosis of muscle; L97.512 Non-pressure chronic ulcer of other part of right foot with fat layer exposed
CPT/HCPCS: 36415; 36416; 70450; 71250; 72125; 73630; 74176; 80053; 80061; 80202; 80306; 80307; 80320; 81003; 82550; 82962; 83036; 83605; 83735; 83880; 84100; 84145; 84443; 85025; 85610; 85651; 86140; 87040; 93005; 93925; 94664; 96365; 96372; 96375; 96376; 97116; 97760; 99285; 99291; C9113; J1650; J2060; J2250; J2270; J2543; J2704; J3010; J3370; J3411; J3475; J3490; J7030; J7050; L3260

== ENCOUNTER 2023-08-29 17:03 | Emergency (ER) | payer BC, SELFPAY ==
[2023-08-29 17:08] VITALS: BP 127/60; PULSE 105; RESP 18; TEMP 36.5; O2SAT 97
[2023-08-29 18:08] LABS: Basophils % 1.4 %; Eosinophils # 0.1 10^3/uL (0.0-0.8); Eosinophils % 2.5 %; Hematocrit 38.1 % (37-53); Lymphocytes # 1.2 10^3/uL (0.8-4.8); Lymphocytes % 43.1 %; Mean Corpuscular Hemoglobin 30.9 pg (27-33); Mean Corpuscular Volume 96.5 fl (82-101); Mean Platelet Volume 9.1 fL (7.4-10.4); Monocytes # 0.2 10^3/uL (0.2-0.9); Monocytes % 5.7 %; Neutrophils # 1.32 10^3/uL (1.8-7.7); Neutrophils % 46.9 %; Nucleated Red Blood Cells % 0 %; Platelet Count 291 10^3/cmm (157-399); Red Blood Count 3.95 10^6/uL (3.85-5.65); Red Cell Distribution Width 16.4 % (12.1-15.1); White Blood Count 2.81 10^3/uL (3.29-11.43)
[2023-08-29 18:32] LABS: Alanine Aminotransferase 55 U/L (0-41); Albumin Level 4.3 g/dL (3.5-5.2); Alkaline Phosphatase 181 U/L (40-130); Anion Gap 16.7 (5-19); Aspartate Amino Transferase 148 U/L (0-40); Blood Urea Nitrogen 18 mg/dL (6-20); Calcium 8.6 mg/dL (8.5-10.5); Carbon Dioxide 28 mmol/L (22-29); Chloride 108 mmol/L (98-107); Creatinine Clr Calc Pharmacy 142.2609; Globulin 2.9 g/dL (1.3-4.6); Glucose 97 mg/dL (65-115); Osmolality Calculated 308 mOsm/kg (285-295); Potassium 4.7 mmol/L (3.5-5.1); Sodium 148 mmol/L (136-145); Total Bilirubin 0.2 mg/dL (0.15-1.2); Total Protein 7.2 g/dL (6.6-8.7)
== END 2023-08-29 20:48 | disposition left against medical advice (07) ==
PROVIDERS: Emergency Medicine; Emergency Provider Family Medicine; PCP Nurse Practitioner Family
DX: Z53.21 Procedure and treatment not carried out due to patient leaving prior to being seen by health care provider (principal)
CPT/HCPCS: 36415; 80053; 85025